=== PATIENT | male | born 1950 | race Caucasian/White ===

== ENCOUNTER 2016-11-20 11:22 | Inpatient (IN) | payer MEDICAID ==
[2016-11-20 12:38] LABS: BASO # 0.1 K/uL (0.0-0.2); BASO % 1.1 % (0.0-2.0); EOS # 0.2 K/uL (0.0-0.7); EOS % 3.8 % (0.0-4.0); HEMATOCRIT 37.3 % (35.0-51.0); LYMPH # 1.8 K/uL (1.0-4.3); LYMPH % 34.4 % (20.0-40.0); MEAN CELL VOLUME 92.9 fL (80.0-94.0); MEAN CORPUSCULAR HEMOGLOBIN 31.1 pg (27.0-31.0); MEAN CORPUSCULAR HGB CONC 33.5 g/dL (33.0-37.0); MEAN PLATELET VOLUME 7.2 fL (7.2-11.7); MONO # 0.5 K/uL (0.0-0.8); MONO % 9.1 % (0.0-10.0); RED CELL DISTRIBUTION WIDTH 13.2 % (11.5-14.5); WHITE BLOOD COUNT 5.2 K/uL (4.8-10.8)
[2016-11-20 12:46] LABS: CHLORIDE 95 mmol/L (98-107); POTASSIUM 3.6 mmol/L (3.6-5.2); SODIUM 134 mmol/L (132-148)
[2016-11-20 12:48] LABS: ALB/GLOB RATIO 1.1 (1.0-2.1); ALKALINE PHOSPHATASE 55 U/L (38-126); AST/SGOT 29 U/L (17-59); BILIRUBIN,TOTAL 0.4 mg/dL (0.2-1.3); BLOOD UREA NITROGEN 18 mg/dL (9-20); CARBON DIOXIDE 31 mmol/L (22-30); GFR AFRICAN-AMERICAN > 60; TOTAL PROTEIN 7.4 g/dL (6.3-8.3)
[2016-11-20 12:49] LABS: ALT/SGPT 40 U/L (21-72); CALCIUM 9.4 mg/dl (8.6-10.4); GLUCOSE,RANDOM 88 mg/dL (75-110)
--- NOTE | 2016-11-20 12:58 | CT ---
PROCEDURE: CT HEAD WITHOUT CONTRAST. HISTORY: LEG WEAKNESS COMPARISON: None available. TECHNIQUE: Axial computed tomography images were obtained through the head/brain without intravenous contrast. Radiation dose: Total exam DLP = 969.77 mGy-cm. This CT exam was performed using one or more of the following dose reduction techniques: Automated exposure control, adjustment of the mA and/or kV according to patient size, and/or use of iterative reconstruction technique. FINDINGS: HEMORRHAGE: No acute parenchymal, subarachnoid or extra-axial hemorrhage. BRAIN: No evidence of large acute infarct. Minor chronic periventricular white matter ischemic changes. Mild generalized volume loss. VENTRICLES: No obstructive hydrocephalus CALVARIUM: . There are no acute calvarial fractures. PARANASAL SINUSES: Mild mucosal thickening within the ethmoid air complex MASTOID AIR CELLS: Unremarkable as visualized. No inflammatory changes. OTHER FINDINGS: Phthisis bulbi left globe IMPRESSION: No acute intracranial hemorrhage. Minor chronic periventricular white matter ischemic changes. . Mild generalized volume loss Phthisis bulbi left globe
--- NOTE | 2016-11-20 14:01 | C.PDOC ---
History Of Present Illness 66-year-old male BIBA for evaluation of difficulty walking for the past three days. Patient states he typically ambulates with a cane, and for the last few days he feels like he has weakness in B/L legs. Patient also reports that he fell earlier today, and was on the floor for approx forty minutes before he was able to call 911. He denies dizziness, trouble walking in straight line, sensory changes, visual changes, speech changes,facial droop, headache, fever, neck or low back pain, chest pain, palpitations. Time Seen by Provider: 11/20/16 11:45 Chief Complaint (Nursing): Lower Extremity Problem/Injury History Per: Patient, EMS History/Exam Limitations: no limitations Onset/Duration Of Symptoms: Days Current Symptoms Are (Timing): Still Present Severity: Moderate Past Medical History Reviewed: Historical Data, Nursing Documentation, Vital Signs Vital Signs: Last Vital Signs Temp 97.7 F 11/26/16 09:01 Pulse 73 11/26/16 09:01 Resp 20 11/26/16 09:01 BP 141/95 H 11/26/16 09:01 Pulse Ox 98 11/26/16 09:08 - Medical History PMH: HTN Family History: States: No Known Family Hx - Social History Hx Alcohol Use: No Hx Substance Use: No - Immunization History Hx Tetanus Toxoid Vaccination: No Hx Influenza Vaccination: Yes Hx Pneumococcal Vaccination: Yes Review Of Systems Except As Marked, All Systems Reviewed And Found Negative. Constitutional: Positive for: Weakness (in legs). Negative for: Fever, Chills Cardiovascular: Negative for: Chest Pain, Palpitations Respiratory: Negative for: Cough, Shortness of Breath Gastrointestinal: Negative for: Nausea, Vomiting, Abdominal Pain, Diarrhea Musculoskeletal: Positive for: Leg Pain Neurological: Positive for: Weakness. Negative for: Numbness, Incoordination, Change in Speech, Confusion, Seizures, Altered Mental Status, Headache, Dizziness Physical Exam - Physical Exam Appears: Well, Non-toxic, No Acute Distress Skin: Warm, Dry, No Rash Head: Atraumatic, Normacephalic Eye(s): bilateral: Normal Inspection, PERRL, EOMI Oral Mucosa: Moist Neck: Normal, Normal ROM, No Midline Cervical Tenderness, No Paracervical Tenderness, No Step Off Deformity, Supple Cardiovascular: Rhythm Regular Respiratory: Normal Breath Sounds, No Rales, No Rhonchi, No Wheezing Gastrointestinal/Abdominal: Normal Exam, Bowel Sounds, Soft, No Tenderness Back: Normal Inspection, No CVA Tenderness, No Vertebral Tenderness Extremity: Normal ROM, No Tenderness, No Pedal Edema, No Calf Tenderness, Capillary Refill (<2 seconds all digits ), No Deformity Extremity: Bilateral: Atraumatic, Normal Color And Temperature, Normal ROM Pulses: Left Dorsalis Pedis: Normal, Right Dorsalis Pedis: Normal Neurological/Psych: Oriented x3, Normal Speech, Normal Cognition, Normal Cranial Nerves, No Cerebellar Signs, Normal Motor, Normal Sensation, Normal Reflexes, No Dysarthria, No Romberg Gait: Unsteady ED Course And Treatment - Laboratory Results Result Diagrams: 11/25/16 17:16 11/25/16 17:16 ECG: Interpreted By Me, Viewed By Me (NSR 70 bpm, normal axis, no acute ST/T wave changes.) O2 Sat by Pulse Oximetry: 98 (RA) Pulse Ox Interpretation: Normal - CT Scan/US CT HEAD Other Rad Studies (CT/US): Read By Radiologist, Radiology Report Reviewed CT/US Interpretation: Accession No. : [id number]. Patient Name / ID : ARIA GREWAL / [id number]. Exam Date : 11/20/2016 12:44:23 ( Approved ). Study Comment : Sex / Age : M / 66Y. Creator : Robby Adler MD. Dictator : Robby Adler MD. Powder Coater : Blend Plant Operator : Robby Adler MD. Approver2 : Report Date : 11/20/2016 12:56:46. My Comment : . PROCEDURE: CT HEAD WITHOUT CONTRAST. HISTORY: LEG WEAKNESS. COMPARISON: None available. TECHNIQUE: Axial computed tomography images were obtained through the head/brain without intravenous contrast. Radiation dose: Total exam DLP = 969.77 mGy-cm. This CT exam was performed using one or more of the following dose reduction techniques: Automated exposure control, adjustment of the mA and/or kV according to patient size, and/or use of iterative reconstruction technique. FINDINGS: HEMORRHAGE: No acute parenchymal, subarachnoid or extra-axial hemorrhage. BRAIN: No evidence of large acute infarct. Minor chronic periventricular white matter ischemic changes. Mild generalized volume loss. VENTRICLES: No obstructive hydrocephalus. CALVARIUM : . There are no acute calvarial fractures. PARANASAL SINUSES: Mild mucosal thickening within the ethmoid air complex. MASTOID AIR CELLS: Unremarkable as visualized. No inflammatory changes. OTHER FINDINGS: Phthisis bulbi left globe. IMPRESSION: No acute intracranial hemorrhage. Minor chronic periventricular white matter ischemic changes. . Mild generalized volume loss. Phthisis bulbi left globe Progress Note: Blood work, CT Head, EKG, UA ordered and reviewed. PT eval ordered - they evaluated patient and think he is too unsteady on his feet to be safely discharged, particularly since he has multiple stairs he needs to climb to get to his apartment. Reevaluation Time: 15:30 Reassessment Condition: Unchanged (Patient resting comfortably, in no pain. When ambulated, patient states both legs feel weak, and is unsteady on feet.) - Physician Consult Information Physician Contacted: Shonda Barlow Outcome Of Conversation: Discussed patient with Dr. Golden Barlow, agrees with admission for difficulty ambulating, recurrent falls, elevated CK. Disposition - Disposition Disposition: HOSPITALIZED Disposition Time: 15:37 Condition: STABLE - Clinical Impression Clinical Impression: Unsteady gait, Recurrent falls, Elevated CK - Scribe Statement The provider has reviewed the documentation as recorded by the Emilie Ron All medical record entries made by the Rosettaibcasey were at my direction and personally dictated by me. I have reviewed the chart and agree that the record accurately reflects my personal performance of the history, physical exam, medical decision making, and the department course for this patient. I have also personally directed, reviewed, and agree with the discharge instructions and disposition. Decision To Admit - Pt Status Changed To: Hospital Disposition Of: Inpatient - Admit Certification Admit to Inpatient:: After my assessment, the patient will require hospitalization for at least two midnights. This is because of the severity of symptoms shown, intensity of services needed, and/or the medical risk in this patient being treated as an outpatient. - InPatient: Physician Admission Certification: I certify that this patient requires 2 or more midnights of care for the following reason:: see notes - . Bed Request Type: Regular Admitting Physician: Shonda Barlow Patient Diagnosis: Unsteady gait, Recurrent falls, Elevated CK
[2016-11-20 14:21] LABS: RBC URINE < 1 /hpf (0-3); URINE BILIRUBIN NEGATIVE (NEGATIVE); URINE BLOOD NEGATIVE (NEGATIVE); URINE COLOR Yellow (YELLOW); URINE GLUCOSE (UA) NORMAL (Normal); URINE KETONE NEGATIVE (NEGATIVE); URINE LEUKOCYTE ESTERASE NEG Leu/uL (Negative); URINE PROTEIN NEGATIVE (NEGATIVE); URINE UROBILINOGEN NORMAL mg/dL (0.2-1.0)
--- NOTE | 2016-11-20 18:11 | CP.PCM.HP ---
Past Patient History - Infectious Disease Hx of Infectious Diseases: None - Past Social History Smoking Status: Never Smoked - CARDIAC Hx Hypertension: Yes - ENDOCRINE/METABOLIC Hx Diabetes Mellitus Type 1: Yes - PSYCHIATRIC Hx Substance Use: No - ANESTHESIA Hx Anesthesia: No Meds Allergies/Adverse Reactions: Allergies Allergy/AdvReac Type Severity Reaction Status Date / Time olive oil Allergy Verified 11/20/16 11:33 Physical Exam - Constitutional Appears: Well - Head Exam Head Exam: ATRAUMATIC, NORMAL INSPECTION, NORMOCEPHALIC - Eye Exam Eye Exam: EOMI, Normal appearance, PERRL Pupil Exam: NORMAL ACCOMODATION, PERRL - ENT Exam ENT Exam: Mucous Membranes Moist, Normal Exam - Neck Exam Neck exam: Positive for: Normal Inspection - Respiratory Exam Respiratory Exam: Decreased Breath Sounds - Cardiovascular Exam Cardiovascular Exam: REGULAR RHYTHM, +S1, +S2 - GI/Abdominal Exam GI & Abdominal Exam: Diminished Bowel Sounds, Soft - Rectal Exam Rectal Exam: Deferred Results - Vital Signs Recent Vital Signs: Last Vital Signs Temp 97.5 F L 11/20/16 17:17 Pulse 84 11/20/16 17:17 Resp 16 11/20/16 17:17 BP 122/90 11/20/16 17:17 Pulse Ox 98 11/20/16 17:17 - Labs Result Diagrams: 11/20/16 12:34 11/20/16 12:34
[2016-11-20] MEDS: Ergocalciferol 50,000 Intl Units Cap PO SCH ×2 (21:44→21:45)
[2016-11-20 23:19] VITALS: RESP 20
[2016-11-21 06:34] LABS: CHLORIDE 97 mmol/L (98-107); POTASSIUM 3.7 mmol/L (3.6-5.2); SODIUM 135 mmol/L (132-148)
[2016-11-21 06:36] LABS: AST/SGOT 29 U/L (17-59); BILIRUBIN,TOTAL 0.6 mg/dL (0.2-1.3); CARBON DIOXIDE 29 mmol/L (22-30); GFR AFRICAN-AMERICAN > 60
[2016-11-21 06:37] LABS: ALB/GLOB RATIO 1.2 (1.0-2.1); ALKALINE PHOSPHATASE 53 U/L (38-126); ALT/SGPT 34 U/L (21-72); BLOOD UREA NITROGEN 18 mg/dL (9-20); CALCIUM 9.1 mg/dl (8.6-10.4); GLUCOSE,RANDOM 86 mg/dL (75-110); TOTAL PROTEIN 6.9 g/dL (6.3-8.3)
[2016-11-21 07:06] LABS: THYROID STIMULATING HORMONE 2.08 mIU/L (0.46-4.68)
[2016-11-21 07:12] LABS: BASO % 0.7 % (0.0-2.0); EOS # 0.2 K/uL (0.0-0.7); EOS % 3.6 % (0.0-4.0); HEMATOCRIT 36.7 % (35.0-51.0); LYMPH # 1.8 K/uL (1.0-4.3); LYMPH % 41.7 % (20.0-40.0); MEAN CELL VOLUME 91.8 fL (80.0-94.0); MEAN CORPUSCULAR HGB CONC 33.8 g/dL (33.0-37.0); MEAN PLATELET VOLUME 7.4 fL (7.2-11.7); MONO # 0.4 K/uL (0.0-0.8); MONO % 10.5 % (0.0-10.0); NRBC % 0.2 % (0.0-2.0); RED CELL DISTRIBUTION WIDTH 13.4 % (11.5-14.5); WHITE BLOOD COUNT 4.3 K/uL (4.8-10.8)
[2016-11-21] MEDS: Enoxaparin 40 mg Syringe SC SCH (11:19)
[2016-11-21] MEDS: Pantoprazole 40 mg EC Tab PO SCH (11:20)
[2016-11-21] MEDS: Tolterodine 2 mg ER Cap PO SCH (11:21)
[2016-11-21] MEDS: Multiple Vitamins Tab PO SCH (11:21)
[2016-11-21 13:08] LABS: THYROID STIMULATING HORMONE 1.19 mIU/L (0.46-4.68)
--- NOTE | 2016-11-21 13:53 | CON ---
DATE: 11/21/2016 ATTENDING PHYSICIAN: Chris Barlow MD. The patient's room #559, bed 1. REASON FOR CONSULTATION: Frequent falls. CHIEF COMPLAINT: The patient was brought in to [facility] with a history of difficulty in walking for the last 3 days. From the fall, he could not able to get up himself, and he was calling to get help. From neurological point of view, I was called in to evaluate him for further management. HISTORY OF PRESENT ILLNESS: The patient is a 66-year-old, moderately obese, male presenting with a fall and inability to get up by himself. He needs assistance to get him up. He was lying on the ground for 30-40 minutes. He also admits one day he slept more than15 hours as a stretch. He could not recall what happened during the whole process. He is also complaining of excessive sleepiness, which could not get up himself to up. No clear history of sleep paralysis, hypnagogic hallucination. He denies headache. He denies neck pain. He denies lower back pain. PAST MEDICAL HISTORY: Significant for bipolar disorder, been on psychiatric medication. High blood pressure. PERSONAL HISTORY: Alcohol: He has not drank since 2005. He never smoked. MEDICATIONS: celecoxib, Coreg, benztropine, metformin, Zyprexa, Niaspan, fluoxetine, Diovan, Detrol, Risperdal, vitamin D3. REVIEW OF SYSTEMS: As per H and P. PHYSICAL EXAMINATION: VITAL SIGNS: Blood pressure 133/87, mean arterial pressure of 102. Respiratory rate is 16, temperature 97.6, pulse rate 78. NEUROLOGIC: The patient is awake, alert, oriented to person, place, and time. Speech is clear. Naming, repetition, fluency, comprehension all within normal. PSYCHIATRIC: No sign of depression. No sign of hallucination. No sign of suicidal ideation. NECK: Supple. No carotid bruit. HEART: Sounds regular. CHEST: Fair air entry. EXTREMITIES: 1+ pitting edema on both sides. MOTOR: On outstretched hand with eyes closed, no drift noted. Power is symmetric on either side. DEEP TENDON REFLEXES: Absent. Plantars are downgoing. COORDINATION: [id number] test is intact. SENSORY EXAMINATION: No evidence of extrapyramidal signs noted. CONCLUSION: 1. Upon reviewing his history and neurological examination, the patient is presenting with possible sleep-related breathing disorder, may be complicated with narcolepsy with cataplexy. 2. 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 3. Polypharmacy. Other possible causes - nonconvulsive seizures, intracranial lesions. This should be ruled out. LABORATORY DATA: Workup: WBC of 5.2, hemoglobin 12.5, hematocrit 37.3, platelets 253. Sodium 134, potassium 3.6, chloride 95, bicarbonate 31. CPK 231. Urinalysis is negative. RECOMMENDATIONS: 1. The patient should have MRI of the brain to rule out intracranial lesion. 2. EEG to rule out electrographic seizures. 3. The patient should have sleep studies, which can be done as an outpatient including a sleep latency test to rule out narcolepsy with cataplexy. The patient should be followed by psychiatrist, and tailor off unwanted medication. Weight reduction and diabetic control has been discussed with the patient. Erlin Armstrong MD cc: [id number] TT: 11/21/2016 11:27:00 Confirmation # [id number] Dictation # [id number] [id number]
--- NOTE | 2016-11-21 14:02 | CP.PCM.PN ---
Subjective - Date & Time of Evaluation Date of Evaluation: 11/21/16 Time of Evaluation: 10:20 - Subjective Subjective: clinically same Objective - Vital Signs/Intake and Output Vital Signs (last 24 hours): Temp Pulse Resp BP Pulse Ox 97.5 F L 80 20 124/89 98 11/21/16 08:53 11/21/16 08:53 11/21/16 08:53 11/21/16 11:20 11/21/16 08:53 Intake and Output: 11/21/16 11/21/16 06:59 18:59 Intake Total 240 Balance 240 - Medications Medications: Current Medications Aspirin (Aspirin) 325 mg PO DAILY [facility] Last Admin: 11/21/16 11:20 Dose: 325 mg Benztropine Mesylate (Cogentin) 2 mg PO DAILY [facility] Last Admin: 11/21/16 11:21 Dose: 2 mg Carvedilol (Coreg) 25 mg PO BID [facility] Last Admin: 11/21/16 11:20 Dose: 25 mg Celecoxib (Celebrex) 200 mg PO DAILY [facility] Last Admin: 11/21/16 11:21 Dose: 200 mg Enoxaparin Sodium (Lovenox) 40 mg SC DAILY [facility] Last Admin: 11/21/16 11:19 Dose: 40 mg Ergocalciferol (Drisdol 50,000 Intl Units Cap) 1 cap PO Q7D [facility] Last Admin: 11/20/16 21:45 Dose: Not Given Fluoxetine HCl (Prozac) 20 mg PO DAILY [facility] Last Admin: 11/21/16 11:27 Dose: 20 mg Metformin HCl (Glucophage) 500 mg PO BID [facility] Last Admin: 11/21/16 11:21 Dose: 500 mg Multivitamins (Hexavitamin) 1 tab PO DAILY [facility] Last Admin: 11/21/16 11:21 Dose: 1 tab Olanzapine (Zyprexa) 5 mg PO HS [facility] Last Admin: 11/20/16 22:27 Dose: 5 mg Pantoprazole Sodium (Protonix Ec Tab) 40 mg PO DAILY [facility] Last Admin: 11/21/16 11:20 Dose: 40 mg Pneumococcal Polyvalent Vaccine (Pneumovax 23 Vaccine) 0.5 ml IM .ONCE ONE Stop: 11/24/16 10:01 Risperidone (Risperdal Tab) 2 mg PO BID [facility] Last Admin: 11/21/16 11:20 Dose: 2 mg Tolterodine Tartrate (Detrol La) 2 mg PO DAILY [facility] Last Admin: 11/21/16 11:21 Dose: 2 mg - Labs Labs: 11/21/16 06:12 11/21/16 06:12 - Constitutional Appears: Well - Head Exam Head Exam: ATRAUMATIC, NORMAL INSPECTION, NORMOCEPHALIC - Eye Exam Eye Exam: EOMI, Normal appearance, PERRL Pupil Exam: NORMAL ACCOMODATION, PERRL - ENT Exam ENT Exam: Mucous Membranes Moist, Normal Exam - Neck Exam Neck Exam: Full ROM, Normal Inspection. absent: Lymphadenopathy - Respiratory Exam Respiratory Exam: Decreased Breath Sounds - Cardiovascular Exam Cardiovascular Exam: REGULAR RHYTHM, +S1, +S2 - GI/Abdominal Exam GI & Abdominal Exam: Soft, Diminished Bowel Sounds - Rectal Exam Rectal Exam: Deferred Assessment and Plan - Assessment and Plan (Free Text) Plan: neuro art dopple rpt ot juan as ordered vit b12 tsh normal vit d ordered
--- NOTE | 2016-11-21 16:13 | VASCLAB ---
PROCEDURE: HISTORY: stenosis COMPARISON: None available. TECHNIQUE: Grayscale and duplex Doppler evaluation of the cervical carotid and vertebral arteries were performed. The common carotid, carotid bifurcations and cervical Internal Carotid Artery (ICA) and proximal External Carotid Artery (ECA) were evaluated. The vertebral arteries were evaluated for gross patency and flow direction. Report prepared by Romulo Moser, BS, RVT FINDINGS: RIGHT CAROTID ARTERIES: 1. Common Carotid Artery: No significant focal plaque formation of the right common carotid artery. Maximum Peak Systolic velocity: 49 cm/sec: End-diastolic velocity 13 cm/sec. 2. Carotid Bifurcation: plaque formation. Maximum Peak Systolic velocity: 24 cm/sec: End-diastolic velocity 10 cm/sec. 3. Internal Carotid Artery: Plaque description: 3.1. Proximal Segment: Peak systolic velocity 82 cm/sec: End-diastolic velocity 24 cm/sec - % stenosis 0-15% 3.2. Middle Segment: Peak systolic velocity 87 cm/sec: End-diastolic velocity 27 cm/sec - % stenosis 0-15% 3.3. Distal Segment: Peak systolic velocity 75 cm/sec: End-diastolic velocity 28 cm/sec - % stenosis 0-15% 4. External Carotid Artery: No significant focal plaque formation. Peak systolic velocity 62 cm/sec 5. ICA/CCA Ratio: 1.8 LEFT CAROTID ARTERIES: 1. Common Carotid Artery: No significant focal plaque formation of the left common carotid artery. Maximum Peak Systolic velocity: 51 cm/sec: End-diastolic velocity 12 cm/sec. 2. Carotid Bifurcation: plaque formation. Maximum Peak Systolic velocity: 40 cm/sec: End-diastolic velocity 11 cm/sec. 3. Internal Carotid Artery: Plaque description: 3.1. Proximal Segment: Peak systolic velocity 84 cm/sec: End-diastolic velocity 28 cm/sec - % stenosis 0-15% 3.2. Middle Segment: Peak systolic velocity 59 cm/sec: End-diastolic velocity 24 cm/sec - % stenosis 0-15% 3.3. Distal Segment: Peak systolic velocity 52 cm/sec: End-diastolic velocity 17 cm/sec - % stenosis 0-15% 4. External Carotid Artery: No significant focal plaque formation. Peak systolic velocity 40 cm/sec 5. ICA/CCA Ratio: 1.6 VERTEBRAL ARTERIES: 1. Right Vertebral Artery: The right vertebral artery flow direction is antegrade. 2. Left Vertebral Artery: The left vertebral artery flow direction is antegrade. OTHER FINDINGS: 1. Right Brachial Blood pressure: 160 mmHg. 2. Left Brachial Blood pressure: 160 mmHg. IMPRESSION: RIGHT: Duplex scan does not suggest hemodynamically significant stenosis of the right extracranial carotid arteries. LEFT: Duplex scan does not suggest hemodynamically significant stenosis of the left extracranial carotid arteries.
--- NOTE | 2016-11-21 18:34 | CARD ---
APPROVED REPORT EKG Measurement Heart [id number] <Conclusion> Normal sinus rhythm Normal ECG
--- NOTE | 2016-11-22 08:15 | MRI ---
PROCEDURE: MRI BRAIN WITHOUT CONTRAST HISTORY: stroke /mass COMPARISON: None. TECHNIQUE: Multiplanar, multisequence MR images of the brain were obtained without intravenous contrast enhancement. FINDINGS: HEMORRHAGE: None DWI: No evidence of an acute or early subacute infarction. BRAIN PARENCHYMA: No mass effect or edema. Scattered periventricular white matter signal abnormalities with mild prominence of the ventricles and sulci compatible with atrophy. VENTRICLES: Unremarkable. No hydrocephalus. CRANIUM: Unremarkable. ORBITS: Grossly unremarkable. PARANASAL SINUSES/MASTOIDS: Clear VASCULAR SYSTEM: Skull base flow voids intact. OTHER FINDINGS: None. IMPRESSION: Scattered periventricular white matter signal abnormalities with mild prominence of the ventricles and sulci compatible with atrophy.
--- NOTE | 2016-11-22 10:26 | CP.PCM.PN ---
Subjective - Date & Time of Evaluation Date of Evaluation: 11/22/16 Time of Evaluation: 12:40 - Subjective Subjective: clinically same Objective - Vital Signs/Intake and Output Vital Signs (last 24 hours): Temp Pulse Resp BP Pulse Ox 97.4 F L 64 20 132/84 97 11/22/16 07:10 11/22/16 07:10 11/22/16 07:10 11/22/16 07:10 11/22/16 07:10 Intake and Output: 11/22/16 11/22/16 06:59 18:59 Intake Total 720 Balance 720 - Medications Medications: Current Medications Aspirin (Aspirin) 325 mg PO DAILY [facility] Last Admin: 11/21/16 11:20 Dose: 325 mg Benztropine Mesylate (Cogentin) 2 mg PO DAILY [facility] Last Admin: 11/21/16 11:21 Dose: 2 mg Carvedilol (Coreg) 25 mg PO BID [facility] Last Admin: 11/21/16 18:13 Dose: 25 mg Celecoxib (Celebrex) 200 mg PO DAILY [facility] Last Admin: 11/21/16 11:21 Dose: 200 mg Enoxaparin Sodium (Lovenox) 40 mg SC DAILY [facility] Last Admin: 11/21/16 11:19 Dose: 40 mg Ergocalciferol (Drisdol 50,000 Intl Units Cap) 1 cap PO Q7D [facility] Last Admin: 11/20/16 21:45 Dose: Not Given Fluoxetine HCl (Prozac) 20 mg PO DAILY [facility] Last Admin: 11/21/16 11:27 Dose: 20 mg Metformin HCl (Glucophage) 500 mg PO BID [facility] Last Admin: 11/21/16 18:13 Dose: 500 mg Multivitamins (Hexavitamin) 1 tab PO DAILY [facility] Last Admin: 11/21/16 11:21 Dose: 1 tab Olanzapine (Zyprexa) 5 mg PO HS [facility] Last Admin: 11/21/16 21:50 Dose: 5 mg Pantoprazole Sodium (Protonix Ec Tab) 40 mg PO DAILY [facility] Last Admin: 11/21/16 11:20 Dose: 40 mg Pneumococcal Polyvalent Vaccine (Pneumovax 23 Vaccine) 0.5 ml IM .ONCE ONE Stop: 11/24/16 10:01 Risperidone (Risperdal Tab) 2 mg PO BID [facility] Last Admin: 11/21/16 18:13 Dose: 2 mg Tolterodine Tartrate (Detrol La) 2 mg PO DAILY [facility] Last Admin: 11/21/16 11:21 Dose: 2 mg - Labs Labs: 11/21/16 06:12 11/21/16 06:12 - Constitutional Appears: Well - Head Exam Head Exam: ATRAUMATIC, NORMAL INSPECTION, NORMOCEPHALIC - Eye Exam Eye Exam: EOMI, Normal appearance, PERRL Pupil Exam: NORMAL ACCOMODATION, PERRL - ENT Exam ENT Exam: Mucous Membranes Moist, Normal Exam - Neck Exam Neck Exam: Full ROM, Normal Inspection. absent: Lymphadenopathy - Respiratory Exam Respiratory Exam: Decreased Breath Sounds - Cardiovascular Exam Cardiovascular Exam: REGULAR RHYTHM, +S1, +S2 - GI/Abdominal Exam GI & Abdominal Exam: Soft, Diminished Bowel Sounds - Rectal Exam Rectal Exam: Deferred
[2016-11-22] MEDS: Tolterodine 2 mg ER Cap PO SCH (10:34)
[2016-11-22] MEDS: Multiple Vitamins Tab PO SCH (10:34)
[2016-11-22] MEDS: Pantoprazole 40 mg EC Tab PO SCH (10:34)
[2016-11-22] MEDS: Enoxaparin 40 mg Syringe SC SCH (10:35)
--- NOTE | 2016-11-22 14:47 | VASCLAB ---
STUDY DESCRIPTION: HISTORY: PAD PRIORS: None. TECHNIQUE: Pulse volume recording waveforms and segmental pressures of bilateral lower extremities at multiple levels were obtained. Ankle Brachial Indices (ABIs) were calculated. Report prepared by TANYA Devi, RVT RIGHT LOWER EXTREMITY: * Brachial artery: Pressure - 126 mmHg. * High thigh: Pressure - 201 mmHg: Ratio - 1.51: PVR waveform - Pulsatile * Low thigh: Pressure - 181 mmHg: Ratio - 1.36 PVR waveform: Pulsatile * Calf: Pressure - 162 mmHg: Ratio - 1.22 PVR waveform: Pulsatile * Posterior tibial Artery: Pressure - 165 mmHg: Ratio - 1.24 PVR waveform: Pulsatile * Dorsalis pedis Artery: Pressure - 165 mmHg: Ratio - 1.24 PVR waveform: Pulsatile * Great toe: Pressure - mmHg: Ratio - PVR waveform: Ankle brachial index (KEYONA): 1.24 LEFT LOWER EXTREMITY: * Brachial artery: Pressure - 133 mmHg. * High thigh: Pressure - 220 mmHg: Ratio - NC: PVR waveform - Pulsatile * Low thigh: Pressure - 202 mmHg: Ratio - 1.52 PVR waveform: Pulsatile * Calf: Pressure - 189 mmHg: Ratio - 1.42 PVR waveform: Pulsatile * Posterior tibial Artery: Pressure - 179 mmHg: Ratio - 1.35 PVR waveform: Pulsatile * Dorsalis pedis Artery: Pressure - 174 mmHg: Ratio - 1.31 PVR waveform: Pulsatile * Great toe: Pressure - mmHg: Ratio - PVR waveform: Ankle brachial index (KEYONA): 1.35 OTHER FINDINGS: Right: Left: IMPRESSION: Right: There was no evidence of hemodynamically significant arterial insufficiency in the right lower extremity. Left: The ankle pressure index of the left lower extremity is non-diagnostic due to possible arterial wall calcifications.
[2016-11-23 21:56] LABS: BLOOD UREA NITROGEN 14 mg/dL (9-20); CALCIUM 8.6 mg/dl (8.6-10.4); CARBON DIOXIDE 26 mmol/L (22-30); CHLORIDE 101 mmol/L (98-107); GFR AFRICAN-AMERICAN > 60; GLUCOSE,RANDOM 91 mg/dL (75-110); POTASSIUM 3.9 mmol/L (3.6-5.2); SODIUM 136 mmol/L (132-148)
[2016-11-23 22:03] LABS: BASO % 0.6 % (0.0-2.0); EOS # 0.2 K/uL (0.0-0.7); EOS % 4.3 % (0.0-4.0); LYMPH # 1.4 K/uL (1.0-4.3); LYMPH % 32.6 % (20.0-40.0); MEAN CELL VOLUME 93.4 fL (80.0-94.0); MEAN CORPUSCULAR HGB CONC 33.2 g/dL (33.0-37.0); MEAN PLATELET VOLUME 7.7 fL (7.2-11.7); MONO # 0.4 K/uL (0.0-0.8); MONO % 9.4 % (0.0-10.0); NRBC % 0.1 % (0.0-2.0); RED CELL DISTRIBUTION WIDTH 13.1 % (11.5-14.5); WHITE BLOOD COUNT 4.3 K/uL (4.8-10.8)
--- NOTE | 2016-11-23 22:32 | CP.PCM.PN ---
Objective - Vital Signs/Intake and Output Vital Signs (last 24 hours): Temp Pulse Resp BP Pulse Ox 98.0 F 75 20 154/72 H 98 11/22/16 15:13 11/22/16 15:13 11/22/16 15:13 11/22/16 19:15 11/22/16 15:13 - Medications Medications: Current Medications Aspirin (Aspirin) 325 mg PO DAILY [facility] Last Admin: 11/22/16 10:34 Dose: 325 mg Benztropine Mesylate (Cogentin) 2 mg PO DAILY [facility] Last Admin: 11/22/16 10:35 Dose: 2 mg Carvedilol (Coreg) 25 mg PO BID [facility] Last Admin: 11/22/16 19:15 Dose: 25 mg Celecoxib (Celebrex) 200 mg PO DAILY [facility] Last Admin: 11/22/16 10:34 Dose: 200 mg Enoxaparin Sodium (Lovenox) 40 mg SC DAILY [facility] Last Admin: 11/22/16 10:35 Dose: 40 mg Ergocalciferol (Drisdol 50,000 Intl Units Cap) 1 cap PO Q7D [facility] Last Admin: 11/20/16 21:45 Dose: Not Given Fluoxetine HCl (Prozac) 20 mg PO DAILY [facility] Last Admin: 11/22/16 10:35 Dose: 20 mg Metformin HCl (Glucophage) 500 mg PO BID [facility] Last Admin: 11/22/16 17:55 Dose: 500 mg Multivitamins (Hexavitamin) 1 tab PO DAILY [facility] Last Admin: 11/22/16 10:34 Dose: 1 tab Olanzapine (Zyprexa) 5 mg PO HS [facility] Last Admin: 11/22/16 22:13 Dose: 5 mg Pantoprazole Sodium (Protonix Ec Tab) 40 mg PO DAILY [facility] Last Admin: 11/22/16 10:34 Dose: 40 mg Pneumococcal Polyvalent Vaccine (Pneumovax 23 Vaccine) 0.5 ml IM .ONCE ONE Stop: 11/24/16 10:01 Risperidone (Risperdal Tab) 2 mg PO BID [facility] Last Admin: 11/22/16 17:55 Dose: 2 mg Tolterodine Tartrate (Detrol La) 2 mg PO DAILY [facility] Last Admin: 11/22/16 10:34 Dose: 2 mg - Labs Labs: 11/23/16 04:00 11/23/16 04:00
[2016-11-24] MEDS ORDERED: Pneumococcal 23-Valent Vaccine IM ONE (10:00)
[2016-11-24] MEDS: Multiple Vitamins Tab PO SCH (10:22)
[2016-11-24] MEDS: Enoxaparin 40 mg Syringe SC SCH (10:23)
[2016-11-24] MEDS: Pantoprazole 40 mg EC Tab PO SCH (10:24)
[2016-11-24] MEDS: Tolterodine 2 mg ER Cap PO SCH (10:38)
--- NOTE | 2016-11-24 11:22 | EEG ---
DATE: 11/21/2016 FINDINGS: The resting electroencephalogram consists of low amplitude 20-30 microvolt diffuse high th eta activity seen at parietal and occipital leads. Anteriorly fast activity superimposed with 2 to 3 Hz delta activity seen. Intermittent movement artifact contaminated by the background rhythm. The photic stimulation did not evoke driving response noted at 2 to 20 Hz. IMPRESSION: This is abnormal electroencephalogram because of persistent slowing throughout the recor d suggestive of bilateral cerebral dysfunction. This is probably secondary to metabolic vascular or degenerative process. Please correlate the findings with neurological and radiological studies. Erlin Armstrong MD cc: [id number] TT: 11/22/2016 21:28:02 Confirmation # [id number] Dictation # [id number]
--- NOTE | 2016-11-24 17:59 | CP.PCM.PN ---
Subjective - Date & Time of Evaluation Date of Evaluation: 11/24/16 Time of Evaluation: 11:20 - Subjective Subjective: clinically same Objective - Vital Signs/Intake and Output Vital Signs (last 24 hours): Temp Pulse Resp BP Pulse Ox 97.8 F 74 20 143/87 96 11/24/16 17:46 11/24/16 17:46 11/24/16 17:46 11/24/16 17:46 11/24/16 17:46 Intake and Output: 11/24/16 11/24/16 06:59 18:59 Intake Total 480 Balance 480 - Medications Medications: Current Medications Aspirin (Aspirin) 325 mg PO DAILY [facility] Last Admin: 11/24/16 10:22 Dose: 325 mg Benztropine Mesylate (Cogentin) 2 mg PO DAILY [facility] Last Admin: 11/24/16 10:22 Dose: 2 mg Carvedilol (Coreg) 25 mg PO BID [facility] Last Admin: 11/24/16 10:38 Dose: 25 mg Celecoxib (Celebrex) 200 mg PO DAILY [facility] Last Admin: 11/24/16 10:24 Dose: 200 mg Enoxaparin Sodium (Lovenox) 40 mg SC DAILY [facility] Last Admin: 11/24/16 10:23 Dose: 40 mg Ergocalciferol (Drisdol 50,000 Intl Units Cap) 1 cap PO Q7D [facility] Last Admin: 11/20/16 21:45 Dose: Not Given Fluoxetine HCl (Prozac) 20 mg PO DAILY [facility] Last Admin: 11/24/16 10:23 Dose: 20 mg Metformin HCl (Glucophage) 500 mg PO BID [facility] Last Admin: 11/24/16 10:22 Dose: 500 mg Multivitamins (Hexavitamin) 1 tab PO DAILY [facility] Last Admin: 11/24/16 10:22 Dose: 1 tab Olanzapine (Zyprexa) 5 mg PO HS [facility] Last Admin: 11/23/16 23:41 Dose: 5 mg Pantoprazole Sodium (Protonix Ec Tab) 40 mg PO DAILY [facility] Last Admin: 11/24/16 10:24 Dose: 40 mg Risperidone (Risperdal Tab) 2 mg PO BID [facility] Last Admin: 11/24/16 10:23 Dose: 2 mg Tolterodine Tartrate (Detrol La) 2 mg PO DAILY [facility] Last Admin: 11/24/16 10:38 Dose: 2 mg - Labs Labs: 11/23/16 04:00 11/23/16 04:00 - Constitutional Appears: Well - Head Exam Head Exam: ATRAUMATIC, NORMAL INSPECTION, NORMOCEPHALIC - Eye Exam Eye Exam: EOMI, Normal appearance, PERRL Pupil Exam: NORMAL ACCOMODATION, PERRL - ENT Exam ENT Exam: Mucous Membranes Moist, Normal Exam - Neck Exam Neck Exam: Full ROM, Normal Inspection. absent: Lymphadenopathy - Respiratory Exam Respiratory Exam: Decreased Breath Sounds - Cardiovascular Exam Cardiovascular Exam: REGULAR RHYTHM, +S1, +S2 - GI/Abdominal Exam GI & Abdominal Exam: Soft, Diminished Bowel Sounds - Rectal Exam Rectal Exam: Deferred
[2016-11-25] MEDS: Multiple Vitamins Tab PO SCH (12:06)
[2016-11-25] MEDS: Pantoprazole 40 mg EC Tab PO SCH (12:06)
[2016-11-25] MEDS: Enoxaparin 40 mg Syringe SC SCH (12:08)
[2016-11-25] MEDS: Tolterodine 2 mg ER Cap PO SCH (12:09)
--- NOTE | 2016-11-25 12:53 | CP.PCM.PN ---
Subjective - Date & Time of Evaluation Date of Evaluation: 11/25/16 Time of Evaluation: 08:40 - Subjective Subjective: clinically same Objective - Vital Signs/Intake and Output Vital Signs (last 24 hours): Temp Pulse Resp BP Pulse Ox 97.7 F 84 20 130/92 H 97 11/24/16 23:05 11/24/16 23:05 11/24/16 23:05 11/25/16 12:07 11/24/16 23:05 - Medications Medications: Current Medications Aspirin (Aspirin) 325 mg PO DAILY [facility] Last Admin: 11/25/16 12:06 Dose: 325 mg Benztropine Mesylate (Cogentin) 2 mg PO DAILY [facility] Last Admin: 11/25/16 12:07 Dose: 2 mg Carvedilol (Coreg) 25 mg PO BID [facility] Last Admin: 11/25/16 12:07 Dose: 25 mg Celecoxib (Celebrex) 200 mg PO DAILY [facility] Last Admin: 11/25/16 12:06 Dose: 200 mg Enoxaparin Sodium (Lovenox) 40 mg SC DAILY [facility] Last Admin: 11/25/16 12:08 Dose: 40 mg Ergocalciferol (Drisdol 50,000 Intl Units Cap) 1 cap PO Q7D [facility] Last Admin: 11/20/16 21:45 Dose: Not Given Fluoxetine HCl (Prozac) 20 mg PO DAILY [facility] Last Admin: 11/25/16 12:08 Dose: 20 mg Metformin HCl (Glucophage) 500 mg PO BID [facility] Last Admin: 11/25/16 12:06 Dose: 500 mg Multivitamins (Hexavitamin) 1 tab PO DAILY [facility] Last Admin: 11/25/16 12:06 Dose: 1 tab Olanzapine (Zyprexa) 5 mg PO HS [facility] Last Admin: 11/24/16 22:35 Dose: 5 mg Pantoprazole Sodium (Protonix Ec Tab) 40 mg PO DAILY [facility] Last Admin: 11/25/16 12:06 Dose: 40 mg Risperidone (Risperdal Tab) 2 mg PO BID [facility] Last Admin: 11/25/16 12:06 Dose: 2 mg Tolterodine Tartrate (Detrol La) 2 mg PO DAILY [facility] Last Admin: 11/25/16 12:09 Dose: 2 mg - Labs Labs: 11/23/16 04:00 11/23/16 04:00 - Constitutional Appears: Well - Head Exam Head Exam: ATRAUMATIC, NORMAL INSPECTION, NORMOCEPHALIC - Eye Exam Eye Exam: EOMI, Normal appearance, PERRL Pupil Exam: NORMAL ACCOMODATION, PERRL - ENT Exam ENT Exam: Mucous Membranes Moist, Normal Exam - Neck Exam Neck Exam: Full ROM, Normal Inspection. absent: Lymphadenopathy - Respiratory Exam Respiratory Exam: Decreased Breath Sounds - Cardiovascular Exam Cardiovascular Exam: REGULAR RHYTHM, +S1, +S2 - GI/Abdominal Exam GI & Abdominal Exam: Soft, Diminished Bowel Sounds - Rectal Exam Rectal Exam: Deferred
--- NOTE | 2016-11-25 15:00 | CP.PCM.PN ---
Subjective - Date & Time of Evaluation Date of Evaluation: 11/25/16 Time of Evaluation: 14:52 - Subjective Subjective: 66 Y/O MALE WITH PMHX BIPOLAR, PT ADMITTED HERE FOR DIFFICULTY WALKING, FREQUENT FALLS, PT IS AWAKE,.AERT, SPEECH CLEAR, NO NEURO DEFICIT, CT BRAIN- NEGATIVE, MRI- NEGATIVE, EEG, CAROTID DOPPLER- NEGATIVE, LOWER EXT US- NO ARTERIAL INSUFFICIENCY, PT CLEARED FOR D/C TODAY PER DR Debra ALANIS AND DR GUEVARA TO [facility]. Objective - Vital Signs/Intake and Output Vital Signs (last 24 hours): Temp Pulse Resp BP Pulse Ox 97.7 F 77 20 130/92 H 99 11/25/16 08:00 11/25/16 08:00 11/25/16 08:00 11/25/16 12:07 11/25/16 08:00 - Medications Medications: Current Medications Aspirin (Aspirin) 325 mg PO DAILY [facility] Last Admin: 11/25/16 12:06 Dose: 325 mg Benztropine Mesylate (Cogentin) 2 mg PO DAILY [facility] Last Admin: 11/25/16 12:07 Dose: 2 mg Carvedilol (Coreg) 25 mg PO BID [facility] Last Admin: 11/25/16 12:07 Dose: 25 mg Celecoxib (Celebrex) 200 mg PO DAILY [facility] Last Admin: 11/25/16 12:06 Dose: 200 mg Enoxaparin Sodium (Lovenox) 40 mg SC DAILY [facility] Last Admin: 11/25/16 12:08 Dose: 40 mg Ergocalciferol (Drisdol 50,000 Intl Units Cap) 1 cap PO Q7D [facility] Last Admin: 11/20/16 21:45 Dose: Not Given Fluoxetine HCl (Prozac) 20 mg PO DAILY [facility] Last Admin: 11/25/16 12:08 Dose: 20 mg Metformin HCl (Glucophage) 500 mg PO BID [facility] Last Admin: 11/25/16 12:06 Dose: 500 mg Multivitamins (Hexavitamin) 1 tab PO DAILY [facility] Last Admin: 11/25/16 12:06 Dose: 1 tab Olanzapine (Zyprexa) 5 mg PO HS [facility] Last Admin: 11/24/16 22:35 Dose: 5 mg Pantoprazole Sodium (Protonix Ec Tab) 40 mg PO DAILY [facility] Last Admin: 11/25/16 12:06 Dose: 40 mg Risperidone (Risperdal Tab) 2 mg PO BID [facility] Last Admin: 11/25/16 12:06 Dose: 2 mg Tolterodine Tartrate (Detrol La) 2 mg PO DAILY [facility] Last Admin: 11/25/16 12:09 Dose: 2 mg - Labs Labs: 11/23/16 04:00 11/23/16 04:00
[2016-11-25 17:34] LABS: BASO % 0.7 % (0.0-2.0); EOS # 0.2 K/uL (0.0-0.7); EOS % 4.9 % (0.0-4.0); HEMATOCRIT 35.9 % (35.0-51.0); LYMPH # 1.9 K/uL (1.0-4.3); LYMPH % 37.5 % (20.0-40.0); MEAN CELL VOLUME 92.6 fL (80.0-94.0); MEAN CORPUSCULAR HEMOGLOBIN 30.4 pg (27.0-31.0); MEAN CORPUSCULAR HGB CONC 32.9 g/dL (33.0-37.0); MONO # 0.5 K/uL (0.0-0.8); MONO % 10.6 % (0.0-10.0); RED CELL DISTRIBUTION WIDTH 13.6 % (11.5-14.5)
[2016-11-25 17:47] LABS: CHLORIDE 103 mmol/L (98-107)
[2016-11-25 17:48] LABS: POTASSIUM 4.2 mmol/L (3.6-5.2); SODIUM 139 mmol/L (132-148)
[2016-11-25 17:50] LABS: BILIRUBIN,TOTAL 0.5 mg/dL (0.2-1.3); CARBON DIOXIDE 23 mmol/L (22-30); GFR AFRICAN-AMERICAN > 60
[2016-11-25 17:51] LABS: ALB/GLOB RATIO 1.1 (1.0-2.1); ALKALINE PHOSPHATASE 47 U/L (38-126); ALT/SGPT 37 U/L (21-72); AST/SGOT 49 U/L (17-59); BLOOD UREA NITROGEN 14 mg/dL (9-20); CALCIUM 8.7 mg/dl (8.6-10.4); GLUCOSE,RANDOM 83 mg/dL (75-110); TOTAL PROTEIN 6.8 g/dL (6.3-8.3)
[2016-11-26 09:03] VITALS: O2SAT 98
[2016-11-26] MEDS: Pantoprazole 40 mg EC Tab PO SCH (09:58)
[2016-11-26] MEDS: Multiple Vitamins Tab PO SCH (09:59)
[2016-11-26] MEDS: Tolterodine 2 mg ER Cap PO SCH (09:59)
[2016-11-26] MEDS: Enoxaparin 40 mg Syringe SC SCH (10:00)
--- NOTE | 2016-11-26 14:54 | CP.PCM.PN ---
Subjective - Date & Time of Evaluation Date of Evaluation: 11/26/16 Objective - Vital Signs/Intake and Output Vital Signs (last 24 hours): Temp Pulse Resp BP Pulse Ox 97.7 F 73 20 141/95 H 98 11/26/16 09:01 11/26/16 09:01 11/26/16 09:01 11/26/16 09:59 11/26/16 09:09 Intake and Output: 11/26/16 11/26/16 06:59 18:59 Intake Total 700 Balance 700 - Medications Medications: Current Medications Aspirin (Aspirin) 325 mg PO DAILY [facility] Last Admin: 11/26/16 10:00 Dose: 325 mg Benztropine Mesylate (Cogentin) 2 mg PO DAILY [facility] Last Admin: 11/26/16 09:58 Dose: 2 mg Carvedilol (Coreg) 25 mg PO BID [facility] Last Admin: 11/26/16 09:59 Dose: 25 mg Celecoxib (Celebrex) 200 mg PO DAILY [facility] Last Admin: 11/26/16 10:00 Dose: 200 mg Enoxaparin Sodium (Lovenox) 40 mg SC DAILY [facility] Last Admin: 11/26/16 10:00 Dose: 40 mg Ergocalciferol (Drisdol 50,000 Intl Units Cap) 1 cap PO Q7D [facility] Last Admin: 11/20/16 21:45 Dose: Not Given Fluoxetine HCl (Prozac) 20 mg PO DAILY [facility] Last Admin: 11/26/16 10:00 Dose: 20 mg Metformin HCl (Glucophage) 500 mg PO BID [facility] Last Admin: 11/26/16 10:00 Dose: 500 mg Multivitamins (Hexavitamin) 1 tab PO DAILY [facility] Last Admin: 11/26/16 09:59 Dose: 1 tab Olanzapine (Zyprexa) 5 mg PO HS [facility] Last Admin: 11/25/16 22:45 Dose: 5 mg Pantoprazole Sodium (Protonix Ec Tab) 40 mg PO DAILY [facility] Last Admin: 11/26/16 09:58 Dose: 40 mg Risperidone (Risperdal Tab) 2 mg PO BID [facility] Last Admin: 11/26/16 10:00 Dose: 2 mg Tolterodine Tartrate (Detrol La) 2 mg PO DAILY [facility] Last Admin: 11/26/16 09:59 Dose: 2 mg - Labs Labs: 11/25/16 17:16 11/25/16 17:16
[2016-11-26 16:41] VITALS: BP 126/87; PULSE 80; TEMP 97.6
== END 2016-11-26 18:12 | DRG 34 ==
LOC: C.ER 11:22 → C.9E 15:37 → C.5T 17:02
PROVIDERS: ADMIT Internal Medicine Nephrology; ATTEND Internal Medicine Nephrology
DX: R26.81 Unsteadiness on feet (principal); E10.40 Type 1 diabetes mellitus with diabetic neuropathy, unspecified; W19.XXXA Unspecified fall, initial encounter; I10 Essential (primary) hypertension; F31.9 Bipolar disorder, unspecified; E66.9 Obesity, unspecified; Z91.81 History of falling; Z79.4 Long term (current) use of insulin; Y92.9 Unspecified place or not applicable

== ENCOUNTER 2016-11-30 21:05 | Inpatient (IN) | payer MEDICAID ==
--- NOTE | 2016-11-30 21:27 | C.PDOC ---
History Of Present Illness 66 y/o male referred to ED by Dr Golden Barlow for weakness the last 2 days. Pt states he was on an exercise bike today and arms felt tired and weak after. Denies numbness, headache, dizziness or any other complaints. Time Seen by Provider: 11/30/16 21:23 Chief Complaint (Nursing): Medical Clearance History Per: Patient History/Exam Limitations: no limitations Onset/Duration Of Symptoms: Days Current Symptoms Are (Timing): Still Present Severity: Mild Recent travel outside of the [place]: No Past Medical History Reviewed: Historical Data, Nursing Documentation, Vital Signs Vital Signs: Last Vital Signs Temp 98.2 F 11/30/16 21:12 Pulse 73 11/30/16 21:12 Resp 18 11/30/16 21:12 BP 141/92 H 11/30/16 21:12 Pulse Ox 99 11/30/16 21:34 - Medical History PMH: Bipolar Disorder, HTN Family History: States: Unknown Family Hx - Social History Hx Alcohol Use: No Hx Substance Use: No - Immunization History Hx Tetanus Toxoid Vaccination: No Hx Influenza Vaccination: Yes Hx Pneumococcal Vaccination: Yes Review Of Systems Except As Marked, All Systems Reviewed And Found Negative. Constitutional: Negative for: Fever Neurological: Positive for: Weakness (arms). Negative for: Numbness, Headache, Dizziness Physical Exam - Physical Exam Appears: Non-toxic, No Acute Distress Skin: Warm, Dry, No Rash Head: Atraumatic, Normacephalic Neck: Normal, Normal ROM, Supple Chest: Symmetrical Cardiovascular: Rhythm Regular, No Murmur Respiratory: Normal Breath Sounds, No Rales, No Rhonchi, No Wheezing Gastrointestinal/Abdominal: Soft, No Tenderness, Other (obese) Extremity: Normal ROM, Capillary Refill (<2 seconds), No Deformity, No Swelling Extremity: Bilateral: Atraumatic Neurological/Psych: Oriented x3, Normal Speech, Normal Motor, Normal Sensation ED Course And Treatment - Laboratory Results Result Diagrams: 11/30/16 22:20 11/30/16 22:20 Lab Interpretation: Normal (trop neg.) ECG: Interpreted By Me ECG Rhythm: Sinus Rhythm ECG Interpretation: Normal Rate From EC O2 Sat by Pulse Oximetry: 99 (room air) Pulse Ox Interpretation: Normal - Radiology CXR: Interpreted by Me CXR Interpretation: Yes: No Acute Disease Reevaluation Time: 23:11 Reassessment Condition: Unchanged (remains asymptomatic) - Physician Consult Information Outcome Of Conversation: [id number]: d/w Dr. Debra Barlow- PMD- ok to Obs. Medical Decision Making Medical Decision Making: weakness after mild exercise on an exercise bike. normal eval and w/u. Obs Disposition Doctor Will See Patient In The: Hospital Counseled Patient/Family Regarding: Studies Performed, Diagnosis - Disposition Disposition: HOSPITALIZED Disposition Time: 23:12 Condition: GOOD Instructions: Weakness (ED) - Clinical Impression Clinical Impression: Weakness - Scribe Statement The provider has reviewed the documentation as recorded by the Emilie Guadalupe Provider Attestation: All medical record entries made by the Emilie were at my direction and personally dictated by me. I have reviewed the chart and agree that the record accurately reflects my personal performance of the history, physical exam, medical decision making, and the department course for this patient. I have also personally directed, reviewed, and agree with the discharge instructions and disposition.
[2016-11-30 22:26] LABS: BASO % 0.8 % (0.0-2.0); EOS # 0.2 K/uL (0.0-0.7); EOS % 5.2 % (0.0-4.0); HEMATOCRIT 38.4 % (35.0-51.0); LYMPH # 1.7 K/uL (1.0-4.3); LYMPH % 38.8 % (20.0-40.0); MEAN CELL VOLUME 92.6 fL (80.0-94.0); MEAN CORPUSCULAR HEMOGLOBIN 31.1 pg (27.0-31.0); MEAN CORPUSCULAR HGB CONC 33.6 g/dL (33.0-37.0); MEAN PLATELET VOLUME 7.7 fL (7.2-11.7); MONO # 0.5 K/uL (0.0-0.8); MONO % 11.2 % (0.0-10.0); NRBC % 0.1 % (0.0-2.0); RED CELL DISTRIBUTION WIDTH 13.3 % (11.5-14.5); WHITE BLOOD COUNT 4.3 K/uL (4.8-10.8)
[2016-11-30 22:33] LABS: CHLORIDE 103 mmol/L (98-107); POTASSIUM 4.1 mmol/L (3.6-5.2); SODIUM 136 mmol/L (132-148)
[2016-11-30 22:36] LABS: ALB/GLOB RATIO 1.1 (1.0-2.1); ALKALINE PHOSPHATASE 51 U/L (38-126); ALT/SGPT 68 U/L (21-72); AST/SGOT 46 U/L (17-59); BILIRUBIN,TOTAL 0.5 mg/dL (0.2-1.3); BLOOD UREA NITROGEN 24 mg/dL (9-20); CARBON DIOXIDE 25 mmol/L (22-30); GFR AFRICAN-AMERICAN > 60; GLUCOSE,RANDOM 91 mg/dL (75-110); TOTAL PROTEIN 6.9 g/dL (6.3-8.3)
[2016-11-30 23:04] LABS: URINE BACTERIA RARE (<OCC); URINE BILIRUBIN NEGATIVE (NEGATIVE); URINE BLOOD NEGATIVE (NEGATIVE); URINE COLOR Yellow (YELLOW); URINE GLUCOSE (UA) NORMAL (Normal); URINE KETONE NEGATIVE (NEGATIVE); URINE LEUKOCYTE ESTERASE NEG Leu/uL (Negative); URINE PROTEIN NEGATIVE (NEGATIVE); URINE UROBILINOGEN NORMAL mg/dL (0.2-1.0); WBC URINE < 1 /hpf (0-5)
--- NOTE | 2016-12-01 07:44 | RAD ---
PROCEDURE: CHEST RADIOGRAPH, 1 VIEW HISTORY: SOB COMPARISON: None available. FINDINGS: LUNGS: Mild venous congestion. Upper lobe granulomatous changes. PLEURA: No pneumothorax or pleural fluid seen. CARDIOVASCULAR: Cardiomegaly. Mild calcification at the aortic knob. OSSEOUS STRUCTURES: No significant abnormalities. VISUALIZED UPPER ABDOMEN: Normal. OTHER FINDINGS: None. IMPRESSION: Mild venous congestion. Upper lobe granulomatous changes.
[2016-12-01] MEDS: Enoxaparin 40 mg Syringe SC SCH (10:41)
--- NOTE | 2016-12-01 14:58 | CP.PCM.HP ---
Past Patient History - Infectious Disease Hx of Infectious Diseases: None - Past Medical History & Family History Past Medical History?: Yes - Past Social History Smoking Status: Never Smoked - CARDIAC Hx Hypertension: Yes - NEUROLOGICAL Other/Comment: tremors - ENDOCRINE/METABOLIC Hx Diabetes Mellitus Type 1: Yes - MUSCULOSKELETAL/RHEUMATOLOGICAL Hx Falls: Yes - GASTROINTESTINAL Hx Gastroesophageal Reflux: Yes - PSYCHIATRIC Hx Bipolar Disorder: Yes Hx Substance Use: No - SURGICAL HISTORY Hx Surgeries: Yes Other/Comment: retinal detachment in 1981 - ANESTHESIA Hx Anesthesia: No Hx Anesthesia Reactions: No Hx Malignant Hyperthermia: No Has any member of the family had a problem w/ anesthesia?: No Meds Allergies/Adverse Reactions: Allergies Allergy/AdvReac Type Severity Reaction Status Date / Time olive oil Allergy Mild Verified 11/30/16 21:22 Physical Exam - Constitutional Appears: Well - Head Exam Head Exam: ATRAUMATIC, NORMAL INSPECTION, NORMOCEPHALIC - Eye Exam Eye Exam: EOMI, Normal appearance, PERRL Pupil Exam: NORMAL ACCOMODATION, PERRL - ENT Exam ENT Exam: Mucous Membranes Moist, Normal Exam - Neck Exam Neck exam: Positive for: Normal Inspection - Respiratory Exam Respiratory Exam: Decreased Breath Sounds - Cardiovascular Exam Cardiovascular Exam: REGULAR RHYTHM, +S1, +S2 - GI/Abdominal Exam GI & Abdominal Exam: Diminished Bowel Sounds, Soft - Rectal Exam Rectal Exam: Deferred Results - Vital Signs Recent Vital Signs: Last Vital Signs Temp 97.9 F 12/01/16 08:09 Pulse 68 12/01/16 08:09 Resp 20 12/01/16 08:09 BP 164/98 H 12/01/16 08:09 Pulse Ox 95 12/01/16 08:09 - Labs Result Diagrams: 11/30/16 22:20 11/30/16 22:20 Labs: Laboratory Results - last 24 hr 12/01/16 06:06 POC Glucose (mg/dL) 90
--- NOTE | 2016-12-01 16:20 | RAD ---
PROCEDURE: Radiographs of the chest and abdomen (obstructive series) HISTORY: constipation COMPARISON: No prior. TECHNIQUE: AP radiograph of the chest, with upright and supine radiographs of the abdomen. FINDINGS: CHEST: Lungs: Clear. Cardiovascular: Normal size heart. No pulmonary vascular congestion. Pleura: No pleural fluid. No pneumothorax. Other findings: None. ABDOMEN AND PELVIS: Bowel: Moderate retained feces. No evidence of bowel obstruction. Gas seen in large and small bowel loops. No air-fluid levels on upright view. Free air: None. Bones: Unremarkable. Other findings: None. IMPRESSION: No evidence of bowel obstruction. Moderate retained feces.
[2016-12-01] MEDS: Magnesium Hydroxide Susp 30 ml UD PO SCH (16:38)
[2016-12-01] MEDS ORDERED: Iohexol 240 (50 ml) PO ONE (18:36)
[2016-12-01] MEDS ORDERED: Iohexol 350mg/ml 100 ML ONE (19:01)
--- NOTE | 2016-12-01 19:17 | CON ---
DATE: 12/01/2016 ATTENDING PHYSICIAN: Chris Barlow MD LOCATION: The patient is in room #559, bed 2. REASON FOR THE CONSULTATION: Weakness. CHIEF COMPLAINT: The patient was brought into [facility] with a history of abrupt onset of weakness while he was exercising himself on the bike. From neurological point of view, I was called in to evaluate him for further management. HISTORY OF PRESENT ILLNESS: The patient is a 66-year-old moderately obese, right-handed male presenting with abrupt onset of weakness while he was using a stationary bike in the [place]. No history of dizziness. No history of neck pain. No history of headache. No history of visual or bulbar dysfunction. No history of focal weakness of his legs. No history of involuntary movements. Recently was admitted in [facility] for change in mental status. He did have workup and he was discharged to the rehabilitation. He was brought into [facility] with increasing new weakness of his arms. PAST MEDICAL HISTORY: Non-insulin dependent diabetes mellitus, hypertension, dyslipidemia, schizophrenia. 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 PERSONAL HISTORY: Denies smoking or alcohol use. He was a heavy alcohol user more than 20 years ago. REVIEW OF SYSTEMS: As per H and P. MEDICATIONS: Celebrex, Cogentin, Detrol, Drisdol, Glucotrol-XL, vitamin, Lovenox, milk of magnesia, Protonix, Prozac, Tylenol and Zyprexa. PHYSICAL EXAMINATION: VITAL SIGNS: Blood pressure 138/90, mean arterial pressure 106, respiratory rate 16, temperature afebrile. NECK: Supple. No carotid bruit. HEART: Sounds regular. CHEST: Fair air entry. EXTREMITIES: No edema in legs. NEUROLOGIC EXAMINATION: MENTAL STATUS EXAMINATION: He is awake, alert. Oriented to person, place, and time. Speech is clear. Naming, repetition, fluency, comprehension all within normal. No sign of hallucination. No sign of suicidal ideation. CRANIAL NERVE EXAMINATION: Left eye blindness, right eye vision intact. Visual sellers intact. Extraocular movements markedly decreased in all directions. No facial sensory deficit, no facial asymmetry, persistent oral lingual dyskinesia consistent with tardive dyskinesia from his longstanding use of neuroleptics. MOTOR: Outstretched hand with eyes closed, no drift noted. He was not able to lift both arms against the gravity, because of the proximal weakness, left more than his right arm. Motor examination of the lower extremities seems to be intact. No fasciculations noted at rest. DEEP TENDON REFLEXES: Right biceps 2+, left side absent. Right brachioradialis 2+, left brachioradialis absent. Triceps absent left side, right side 2+, both knees at 3+, both ankles are absent. Plantars are upgoing on both sides. SENSORY: Significant distal sensory motor neuropathy noted. No cortical sensory loss. No dermatome sensory loss. COORDINATION: [id number] test is dysmetria because of weakness of his arm. GAIT: Deferred at this time. ASSESSMENT: 1. On examination of the neck, severe cervical anterior pop with elevated right shoulder and hypertrophy of the trapezius muscle group and Scalene muscle groups. This is all consistent with a possible cervical acquired myelopathy from his cervical disk disease. 2. The patient also presenting with tardive dyskinesia secondary to his longstanding use of neuroleptics. No sign of extrapyramidal sign noted. 3. Significant distal sensory and motor neuropathy. RECOMMENDATIONS: 1. Blood workup as per the order. 2. Thiamine supplement. 3. MRI of the cervical spine and physical therapy should be started. The patient should be kept on DVT prophylaxis and fall precaution. The patient's condition has been discussed with him. The patient agreed with the plan of management. Erlin Armstrong MD cc: [id number] TT: 12/01/2016 19:17:31 Confirmation # [id number] Dictation # [id number] MTDD
[2016-12-01 20:56] LABS: FREE T4 0.99 ng/dL (0.78-2.19)
[2016-12-01 21:36] LABS: FOLATE 14.4 ng/mL
--- NOTE | 2016-12-02 08:12 | CP.PCM.CON ---
<Kaylen Miller - Last Filed: 12/02/16 09:53> History of Present Illness - History of Present Illness History of Present Illness: Gastroenterology Fellow/PGY4 Consult Note 66 year old male with history of obesity, left eye blindness,Diabetes, Hypertension, Schizophrenia, and Hyperlipidemia presenting with weakness. Patient describes feeling well yesterday prior to exercise on stationary bike with sudden onset of weakness of all extremities and slowed body movements leading to ER presentation. Denies nausea, vomiting, hematemesis, heartburn, indigestion, acid reflux, abdominal pain, distension, diarrhea, melena, hematochezia,, or unintentional weight loss. Notes no bowel movement for for five to six days prior to ER presentation. Admits to adequate water, fruits, and vegetable intake. Usual normal daily bowel habits. No prior EGD or colonoscopy. Family- denies colon cancer Social- quit Alcohol use over 20 years prior, denies tobacco and illicit drug use Surgery- left eye retinal detachment Review of Systems - Review of Systems Review of Systems: A 12-point review of systems negative except for as above Past Patient History - Infectious Disease Hx of Infectious Diseases: None - Past Medical History & Family History Past Medical History?: Yes - Past Social History Smoking Status: Never Smoked - CARDIAC Hx Hypertension: Yes - NEUROLOGICAL Other/Comment: tremors - ENDOCRINE/METABOLIC Hx Diabetes Mellitus Type 1: Yes - MUSCULOSKELETAL/RHEUMATOLOGICAL Hx Falls: Yes - GASTROINTESTINAL Hx Gastroesophageal Reflux: Yes - PSYCHIATRIC Hx Bipolar Disorder: Yes Hx Substance Use: No - SURGICAL HISTORY Hx Surgeries: Yes Other/Comment: retinal detachment in 1981 - ANESTHESIA Hx Anesthesia: No Hx Anesthesia Reactions: No Hx Malignant Hyperthermia: No Has any member of the family had a problem w/ anesthesia?: No Meds Allergies/Adverse Reactions: Allergies Allergy/AdvReac Type Severity Reaction Status Date / Time olive oil Allergy Mild Verified 11/30/16 21:22 - Medications Medications: Current Medications Acetaminophen (Tylenol 325mg Tab) 650 mg PO Q4 PRN PRN Reason: PAIN MILD Benztropine Mesylate (Cogentin) 2 mg PO DAILY [facility] Celecoxib (Celebrex) 200 mg PO DAILY [facility] Enoxaparin Sodium (Lovenox) 40 mg SC DAILY [facility] Last Admin: 12/01/16 10:41 Dose: 40 mg Ergocalciferol (Drisdol 50,000 Intl Units Cap) 1 cap PO QWK [facility] Fluoxetine HCl (Prozac) 20 mg PO DAILY [facility] Lactulose (Enulose) 20 gm PO HS [facility] Last Admin: 12/01/16 22:27 Dose: 20 gm Magnesium Hydroxide (Milk Of Magnesia) 30 ml PO DAILY [facility] Last Admin: 12/01/16 16:38 Dose: 30 ml Metformin HCl (Glucophage) 500 mg PO BIDCC [facility] Last Admin: 12/01/16 16:38 Dose: 500 mg Multivitamins (Hexavitamin) 1 tab PO DAILY [facility] Olanzapine (Zyprexa) 5 mg PO DAILY [facility] Pantoprazole Sodium (Protonix Ec Tab) 40 mg PO DAILY [facility] Thiamine HCl (Vitamin B1 Tab) 100 mg PO DAILY [facility] Tolterodine Tartrate (Detrol La) 2 mg PO DAILY [facility] Physical Exam - Constitutional Appears: Non-toxic, No Acute Distress - Head Exam Head Exam: ATRAUMATIC, NORMOCEPHALIC - Eye Exam Eye Exam: EOMI, PERRL Pupil Exam: PERRL. absent: Miosis, Mydriatic - ENT Exam ENT Exam: Mucous Membranes Moist, Normal Oropharynx - Neck Exam Neck exam: Positive for: Full Rom, Normal Inspection - Respiratory Exam Respiratory Exam: Clear to Auscultation Bilateral. absent: Rales, Rhonchi, Wheezes - Cardiovascular Exam Cardiovascular Exam: RRR, +S1, +S2. absent: Gallop, Rubs - GI/Abdominal Exam GI & Abdominal Exam: Distended, Normal Bowel Sounds, Soft. absent: Firm, Guarding, Organomegaly, Rebound, Rigid, Tenderness Additional comments: distended at baseline per patient - Extremities Exam Extremities exam: Positive for: full ROM. Negative for: pedal edema - Neurological Exam Neurological exam: Alert - Psychiatric Exam Psychiatric exam: Normal Affect, Normal Mood - Skin Skin Exam: Dry, Intact, Normal Color, Warm Results - Vital Signs Recent Vital Signs: Last Vital Signs Temp 97.4 F L 12/02/16 07:28 Pulse 64 12/02/16 07:28 Resp 20 12/02/16 07:28 BP 145/92 H 12/02/16 07:28 Pulse Ox 97 12/02/16 07:28 - Labs Result Diagrams: 11/30/16 22:20 11/30/16 22:20 Labs: Laboratory Results - last 24 hr 12/01/16 12/01/16 12/01/16 16:51 20:06 20:06 POC Glucose (mg/dL) 120 H Vitamin B12 > 1000 H Folate 14.4 Free T4 0.99 TSH 3rd Generation 2.00 RPR 12/01/16 12/01/16 12/02/16 20:06 21:29 06:04 POC Glucose (mg/dL) 131 H 97 Vitamin B12 Folate Free T4 TSH 3rd Generation RPR Nonreactive Assessment & Plan - Assessment and Plan (Free Text) Assessment: 66 year old male with history of obesity, left eye blindness,Diabetes, Hypertension, Schizophrenia, and Hyperlipidemia presenting with weakness. GI consultation for abdominal distension. No prior EGD or colonoscopy. Plan: >CT A/P-severe constipation >bowel movement yesterday with milk of magnesia >ordered tap water enema, and mineral oil enema >Miralax daily >abdominal pain resolved >GNR UTI >recommend antibiotic coverage >neuro managing- weakness, MRI C-spine >benefit from elective colonoscopy for CRC screening <Brandon Peterson - Last Filed: 12/02/16 10:18> Meds - Medications Medications: Current Medications Acetaminophen (Tylenol 325mg Tab) 650 mg PO Q4 PRN PRN Reason: PAIN MILD Benztropine Mesylate (Cogentin) 2 mg PO DAILY [facility] Last Admin: 12/02/16 09:26 Dose: 2 mg Celecoxib (Celebrex) 200 mg PO DAILY [facility] Last Admin: 12/02/16 09:25 Dose: 200 mg Enoxaparin Sodium (Lovenox) 40 mg SC DAILY [facility] Last Admin: 12/02/16 09:27 Dose: 40 mg Ergocalciferol (Drisdol 50,000 Intl Units Cap) 1 cap PO QWK [facility] Last Admin: 12/02/16 09:25 Dose: 1 cap Fluoxetine HCl (Prozac) 20 mg PO DAILY [facility] Last Admin: 12/02/16 09:26 Dose: 20 mg Lactulose (Enulose) 20 gm PO HS [facility] Last Admin: 12/01/16 22:27 Dose: 20 gm Magnesium Hydroxide (Milk Of Magnesia) 30 ml PO DAILY [facility] Last Admin: 12/02/16 09:27 Dose: 30 ml Metformin HCl (Glucophage) 500 mg PO BIDCC [facility] Last Admin: 12/01/16 16:38 Dose: 500 mg Multivitamins (Hexavitamin) 1 tab PO DAILY [facility] Last Admin: 12/02/16 09:26 Dose: 1 tab Olanzapine (Zyprexa) 5 mg PO DAILY [facility] Last Admin: 12/02/16 09:26 Dose: 5 mg Pantoprazole Sodium (Protonix Ec Tab) 40 mg PO DAILY [facility] Last Admin: 12/02/16 09:25 Dose: 40 mg Polyethylene Glycol (Miralax) 17 gm PO DAILY [facility] Thiamine HCl (Vitamin B1 Tab) 100 mg PO DAILY [facility] Last Admin: 12/02/16 09:25 Dose: 100 mg Tolterodine Tartrate (Detrol La) 2 mg PO DAILY [facility] Last Admin: 12/02/16 09:26 Dose: 2 mg Results - Vital Signs Recent Vital Signs: Last Vital Signs Temp 97.4 F L 12/02/16 07:28 Pulse 64 12/02/16 07:28 Resp 20 12/02/16 07:28 BP 145/92 H 12/02/16 07:28 Pulse Ox 97 12/02/16 07:28 - Labs Result Diagrams: 11/30/16 22:20 11/30/16 22:20 Labs: Laboratory Results - last 24 hr 12/01/16 12/01/16 12/01/16 16:51 20:06 20:06 POC Glucose (mg/dL) 120 H Vitamin B12 > 1000 H Folate 14.4 Free T4 0.99 TSH 3rd Generation 2.00 RPR 12/01/16 12/01/16 12/02/16 20:06 21:29 06:04 POC Glucose (mg/dL) 131 H 97 Vitamin B12 Folate Free T4 TSH 3rd Generation RPR Nonreactive Attending/Attestation - Attestation I have personally seen and examined this patient.: Yes I have fully participated in the care of the patient.: Yes I have reviewed all pertinent clinical information: Yes Notes (Text): 12/02/16 10:12 I have seen and examined patient with GI fellow. Agree with above documentation with the following additions. In brief, this is a 66 year old male with history of obesity, schizophrenia, DM, HTN who presented to hospital with weakness. He is currently undergoing neurology workup for sudden onset weakness which he describes started yesterday. GI called for abdominal distention and pain. He describes chronic constipation and recently has not had any bowel movements for the past 6 days. He notes mild abdominal discomfort , generalized without any associated nausea, vomiting, fever/chills, weight loss , rectal bleeding, or change in bowel habits. No prior endoscopic evaluation. Obesity Schizophrenia DM / HTN Chronic constipation, abdominal distention/pain CT imaging reviewed by me showing extensive fecal retention throughout colon UTI - Diet as tolerated - Follow up neurology recommendations - Patient had a large bowel movement yesterday after administration of magnesium citrate. Would give another 2 enemas today, tap water and mineral oil , followed by placement on aggressive bowel regimen to prevent ongoing constipation. - Begin twice daily miralax and stool softner therapy - Encourage patient to increase PO water and fiber intake - Patient would benefit from elective outpatient colonoscopy, particularly since patient has never had before. No ongoing GI issues, abdominal pain has resolved following bowel movement yesterday. Will sign off case, please reconsult as necessary, thank you.
[2016-12-02] MEDS: Pantoprazole 40 mg EC Tab PO SCH (09:25)
[2016-12-02] MEDS: Ergocalciferol 50,000 Intl Units Cap PO SCH (09:25)
[2016-12-02] MEDS: Multiple Vitamins Tab PO SCH (09:26)
[2016-12-02] MEDS: Tolterodine 2 mg ER Cap PO SCH (09:26)
[2016-12-02] MEDS: Enoxaparin 40 mg Syringe SC SCH (09:27)
[2016-12-02] MEDS: Magnesium Hydroxide Susp 30 ml UD PO SCH (09:27)
--- NOTE | 2016-12-02 09:46 | CT ---
PROCEDURE: CT Abdomen and Pelvis with contrast HISTORY: abd distention COMPARISON: None. TECHNIQUE: Contrast dose: 100 cc Omnipaque 350 Radiation dose: Total exam DLP = last 1205.50 mGy-cm. This CT exam was performed using one or more of the following dose reduction techniques: Automated exposure control, adjustment of the mA and/or kV according to patient size, and/or use of iterative reconstruction technique. FINDINGS: LOWER THORAX: Incompletely visualized pericardial effusion. Maximal thickness 2.4 cm. LIVER: Unremarkable. No gross lesion or ductal dilatation. Incidental finding(s): Simple cyst right hepatic lobe GALLBLADDER AND BILE DUCTS: Unremarkable. PANCREAS: Unremarkable. No gross lesion or ductal dilatation. SPLEEN: Unremarkable. ADRENALS: Unremarkable. No mass. KIDNEYS AND URETERS: Unremarkable. No hydronephrosis. No solid mass. Incidental finding(s): Simple cyst left kidney 2.2 cm lower pole. VASCULATURE: Unremarkable. No aortic aneurysm. BOWEL: Constipation without fecal impaction or obstruction. APPENDIX: Normal appendix. PERITONEUM: Unremarkable. No free fluid. No free air. LYMPH NODES: Unremarkable. No enlarged lymph nodes. BLADDER: Unremarkable. REPRODUCTIVE: Unremarkable. BONES: No acute fracture. Incidental finding(s): Hum angioma L3 vertebral body. OTHER FINDINGS: None. IMPRESSION: No acute findings related to/accounting for the clinical presentation. Additional benign and/or incidental findings described above. Concordant results (preliminary interpretation) provided by [employer]. Procedure Completed: 22:13. Preliminary ([employer]) Report: Dictated and Authenticated: 22:53. Final Interpretation: 09:44. December 02, 2016.
[2016-12-02] MEDS ORDERED: Mineral Oil Enema 135 ml RC ONE (09:54)
[2016-12-02] MEDS ORDERED: NIACIN 500 MG PO SCH (10:00)
[2016-12-02] MEDS: POLYETHYLENE GLYCOL 3350 17 GM/Dose PACKET PO SCH (11:44)
--- NOTE | 2016-12-02 13:47 | CP.PCM.PN ---
Subjective - Date & Time of Evaluation Date of Evaluation: 12/02/16 Time of Evaluation: 11:00 - Subjective Subjective: clinically same Objective - Vital Signs/Intake and Output Vital Signs (last 24 hours): Temp Pulse Resp BP Pulse Ox 97.4 F L 64 20 145/92 H 97 12/02/16 07:28 12/02/16 07:28 12/02/16 07:28 12/02/16 07:28 12/02/16 07:28 - Medications Medications: Current Medications Acetaminophen (Tylenol 325mg Tab) 650 mg PO Q4 PRN PRN Reason: PAIN MILD Benztropine Mesylate (Cogentin) 2 mg PO DAILY [facility] Last Admin: 12/02/16 09:26 Dose: 2 mg Celecoxib (Celebrex) 200 mg PO DAILY [facility] Last Admin: 12/02/16 09:25 Dose: 200 mg Enoxaparin Sodium (Lovenox) 40 mg SC DAILY [facility] Last Admin: 12/02/16 09:27 Dose: 40 mg Ergocalciferol (Drisdol 50,000 Intl Units Cap) 1 cap PO QWK [facility] Last Admin: 12/02/16 09:25 Dose: 1 cap Fluoxetine HCl (Prozac) 20 mg PO DAILY [facility] Last Admin: 12/02/16 09:26 Dose: 20 mg Lactulose (Enulose) 20 gm PO HS [facility] Last Admin: 12/01/16 22:27 Dose: 20 gm Magnesium Hydroxide (Milk Of Magnesia) 30 ml PO DAILY [facility] Last Admin: 12/02/16 09:27 Dose: 30 ml Metformin HCl (Glucophage) 500 mg PO BIDCC [facility] Last Admin: 12/01/16 16:38 Dose: 500 mg Multivitamins (Hexavitamin) 1 tab PO DAILY [facility] Last Admin: 12/02/16 09:26 Dose: 1 tab Olanzapine (Zyprexa) 5 mg PO DAILY [facility] Last Admin: 12/02/16 09:26 Dose: 5 mg Pantoprazole Sodium (Protonix Ec Tab) 40 mg PO DAILY [facility] Last Admin: 12/02/16 09:25 Dose: 40 mg Polyethylene Glycol (Miralax) 17 gm PO DAILY [facility] Last Admin: 12/02/16 11:44 Dose: 17 gm Thiamine HCl (Vitamin B1 Tab) 100 mg PO DAILY [facility] Last Admin: 12/02/16 09:25 Dose: 100 mg Tolterodine Tartrate (Detrol La) 2 mg PO DAILY [facility] Last Admin: 12/02/16 09:26 Dose: 2 mg - Constitutional Appears: Well - Head Exam Head Exam: ATRAUMATIC, NORMAL INSPECTION, NORMOCEPHALIC - Eye Exam Eye Exam: EOMI, Normal appearance, PERRL Pupil Exam: NORMAL ACCOMODATION, PERRL - ENT Exam ENT Exam: Mucous Membranes Moist, Normal Exam - Neck Exam Neck Exam: Full ROM, Normal Inspection. absent: Lymphadenopathy - Respiratory Exam Respiratory Exam: Decreased Breath Sounds - Cardiovascular Exam Cardiovascular Exam: REGULAR RHYTHM, +S1, +S2 - GI/Abdominal Exam GI & Abdominal Exam: Soft, Diminished Bowel Sounds - Rectal Exam Rectal Exam: Deferred
[2016-12-02 16:01] LABS: BASO % 0.7 % (0.0-2.0); EOS # 0.3 K/uL (0.0-0.7); EOS % 5.1 % (0.0-4.0); HEMATOCRIT 39.2 % (35.0-51.0); LYMPH # 1.5 K/uL (1.0-4.3); LYMPH % 30.6 % (20.0-40.0); MEAN CELL VOLUME 92.9 fL (80.0-94.0); MEAN CORPUSCULAR HEMOGLOBIN 31.1 pg (27.0-31.0); MEAN CORPUSCULAR HGB CONC 33.5 g/dL (33.0-37.0); MEAN PLATELET VOLUME 8.2 fL (7.2-11.7); MONO # 0.6 K/uL (0.0-0.8); NRBC % 0.1 % (0.0-2.0); RED CELL DISTRIBUTION WIDTH 13.1 % (11.5-14.5); WHITE BLOOD COUNT 4.9 K/uL (4.8-10.8)
[2016-12-02 16:09] LABS: CHLORIDE 98 mmol/L (98-107); SODIUM 138 mmol/L (132-148)
--- NOTE | 2016-12-02 16:09 | MRI ---
PROCEDURE: MRI of the cervical spine dated 12/02/2016 HISTORY: Cervical myelopathy COMPARISON: No prior TECHNIQUE: Multiecho multiplanar sequences were performed through the cervical spine before and following intravenous injection of approximately 20 cc Omniscan contrast material. FINDINGS: The current study reveals no acute compression fractures no retropulsed fragments. Chronic appearing anterior stature loss of the C5, C6 and to a lesser degree C7 and C4 segments felt to be degenerative in origin. The remaining vertebral bodies otherwise exhibit normal stature. There is straightening of the normal cervical lordosis which could be in part secondary to patient positioning gantry however underlying element of muscle spasm may contribute. Vertebral bodies and facets are otherwise normally aligned. Multilevel degenerative spondylosis. At the C3-C4 level, there is disc desiccation however disc space height is relatively maintained. Moderate-sized central and bilateral disc herniation ridge complex on larger on the left than right is present. Changes result in significant canal compromise and cord compression. There is also increased T2 signal seen within the visualized spinal cord at this level consistent with gliosis/myelomalacia. . There is also enhancement seen within the epidural space at this level extending into the along the dura of the exit foramina. Changes may be reactive due to edema/ increased vascular congestion and granulation tissue surrounding the disc material . Infection is much less likely though not completely excluded. At The C4-C5 level, there is marked disc desiccation and disc space narrowing. Small osteophytic ridge disc complex minimally flattens the ventral surface of the thecal sac and spinal cord. Central canal is mildly narrowed. Hypertrophic uncovertebral and facet joints with bilateral foraminal stenosis. At the C5-C6 level, disc desiccation and disc space narrowing. Minimal broad-based bulge of the posterior annulus results in some flattening the ventral surface of thecal sac hand reaching the ventral surface of the cord. The. Central canal appears adequate. Hypertrophic uncovertebral facets result in bilateral foraminal stenosis. At the C6-C7 level, there is disc desiccation and disc space narrowing with small broad-based bulge of the posterior annulus. The changes result in mild flattening the ventral surface of the thecal sac. Central canal is marginal to minimally narrowed. Exit foramina are stenotic bilaterally due to overgrown uncovertebral facets. There is also mild broad-based bulge of the posterior annulus at the C7-T1 level without cord compression. Impression: Large central and bilateral left larger than right) disc herniation at the C3-C4 level results in significant canal stenosis and cord compression. There is prolonged T2 signal seen within the spinal cord at this level consistent with gliosis/ myelomalacia. There also appears to be some enhancement in the epidural space surrounding this area likely reactive due to edema/increased vascular congestion and granulation tissue surrounding the disc material. . Epidural infection would be much less likely though not completely excluded. Note that these findings discussed with 5 tower Nurse [place] at approximately 4:00 p.m. with written down and read back verification. Multilevel degenerative spondylosis seen at the remaining levels.
[2016-12-02 16:11] LABS: GFR AFRICAN-AMERICAN > 60
[2016-12-02 16:12] LABS: ALB/GLOB RATIO 1.1 (1.0-2.1); ALKALINE PHOSPHATASE 54 U/L (38-126); ALT/SGPT 67 U/L (21-72); AST/SGOT 41 U/L (17-59); BILIRUBIN,TOTAL 0.5 mg/dL (0.2-1.3); BLOOD UREA NITROGEN 11 mg/dL (9-20); CARBON DIOXIDE 29 mmol/L (22-30); GLUCOSE,RANDOM 78 mg/dL (75-110); TOTAL PROTEIN 7.2 g/dL (6.3-8.3)
[2016-12-02] MEDS: (Novolog) Insulin Aspart, Recombinant 100 u/ml 10 ml vial SC SCH ×2 (18:35→22:05)
[2016-12-03] MEDS: (Novolog) Insulin Aspart, Recombinant 100 u/ml 10 ml vial SC SCH ×4 (07:30→21:49)
[2016-12-03] MEDS: Tolterodine 2 mg ER Cap PO SCH (09:47)
[2016-12-03] MEDS: Multiple Vitamins Tab PO SCH (09:49)
[2016-12-03] MEDS: Pantoprazole 40 mg EC Tab PO SCH (09:51)
[2016-12-03] MEDS: Magnesium Hydroxide Susp 30 ml UD PO SCH (09:51)
[2016-12-03] MEDS: Enoxaparin 40 mg Syringe SC SCH (09:54)
[2016-12-03] MEDS: POLYETHYLENE GLYCOL 3350 17 GM/Dose PACKET PO SCH (10:00)
--- NOTE | 2016-12-03 11:17 | US ---
PROCEDURE: Urinary bladder ultrasound HISTORY: POST RESIDUAL URINE ASSESS RETURNTION COMPARISON: None available. TECHNIQUE: Standard protocol for this study/examination. FINDINGS: Urinary bladder assessment: Prevoid volume: 1518 ml Postvoid residual: 506 ml Intrinsic, mural, perivesical abnormalities: None Ureteral jets: Documented bilaterally. Transabdominal prostate volume measurement 16.3 mL. IMPRESSION: Large capacitance bladder, large postvoid residual. No focal abnormalities.
--- NOTE | 2016-12-03 12:50 | CP.PCM.PN ---
Subjective - Date & Time of Evaluation Date of Evaluation: 12/03/16 Time of Evaluation: 08:40 - Subjective Subjective: clinically same Objective - Vital Signs/Intake and Output Vital Signs (last 24 hours): Temp Pulse Resp BP Pulse Ox 98 F 62 20 158/104 H 100 12/03/16 08:15 12/03/16 08:15 12/03/16 08:15 12/03/16 08:15 12/03/16 08:15 - Medications Medications: Current Medications Acetaminophen (Tylenol 325mg Tab) 650 mg PO Q4 PRN PRN Reason: PAIN MILD Benztropine Mesylate (Cogentin) 2 mg PO DAILY [facility] Last Admin: 12/03/16 09:45 Dose: 2 mg Celecoxib (Celebrex) 200 mg PO DAILY [facility] Last Admin: 12/02/16 09:25 Dose: 200 mg Dexamethasone (Decadron) 4 mg PO Q6 [facility] Last Admin: 12/03/16 07:30 Dose: 4 mg Enoxaparin Sodium (Lovenox) 40 mg SC DAILY [facility] Last Admin: 12/03/16 09:54 Dose: 40 mg Ergocalciferol (Drisdol 50,000 Intl Units Cap) 1 cap PO QWK [facility] Last Admin: 12/02/16 09:25 Dose: 1 cap Famotidine (Pepcid) 20 mg PO BID [facility] Last Admin: 12/03/16 09:46 Dose: 20 mg Fluoxetine HCl (Prozac) 20 mg PO DAILY [facility] Last Admin: 12/03/16 09:48 Dose: 20 mg Insulin Aspart (Novolog) 0 unit SC ACHS [facility] PRN Reason: Protocol Stop: 12/04/16 00:00 Last Admin: 12/03/16 07:30 Dose: Not Given Lactulose (Enulose) 20 gm PO HS [facility] Last Admin: 12/02/16 22:18 Dose: 20 gm Magnesium Hydroxide (Milk Of Magnesia) 30 ml PO DAILY [facility] Last Admin: 12/03/16 09:51 Dose: 30 ml Metformin HCl (Glucophage) 500 mg PO BIDCC [facility] Last Admin: 12/01/16 16:38 Dose: 500 mg Multivitamins (Hexavitamin) 1 tab PO DAILY [facility] Last Admin: 12/03/16 09:49 Dose: 1 tab Olanzapine (Zyprexa) 5 mg PO DAILY [facility] Last Admin: 12/03/16 09:47 Dose: 5 mg Pantoprazole Sodium (Protonix Ec Tab) 40 mg PO DAILY [facility] Last Admin: 12/03/16 09:51 Dose: 40 mg Polyethylene Glycol (Miralax) 17 gm PO DAILY [facility] Last Admin: 12/02/16 11:44 Dose: 17 gm Thiamine HCl (Vitamin B1 Tab) 100 mg PO DAILY [facility] Last Admin: 12/03/16 09:50 Dose: 100 mg Tolterodine Tartrate (Detrol La) 2 mg PO DAILY [facility] Last Admin: 12/03/16 09:47 Dose: 2 mg - Labs Labs: 12/02/16 15:57 12/02/16 15:57 - Constitutional Appears: Well - Head Exam Head Exam: ATRAUMATIC, NORMAL INSPECTION, NORMOCEPHALIC - Eye Exam Eye Exam: EOMI, Normal appearance, PERRL Pupil Exam: NORMAL ACCOMODATION, PERRL - ENT Exam ENT Exam: Mucous Membranes Moist, Normal Exam - Neck Exam Neck Exam: Full ROM, Normal Inspection. absent: Lymphadenopathy - Respiratory Exam Respiratory Exam: Decreased Breath Sounds - Cardiovascular Exam Cardiovascular Exam: REGULAR RHYTHM, +S1, +S2 - GI/Abdominal Exam GI & Abdominal Exam: Soft, Diminished Bowel Sounds - Rectal Exam Rectal Exam: Deferred
--- NOTE | 2016-12-03 13:13 | CP.PCM.PN ---
Subjective - Date & Time of Evaluation Date of Evaluation: 12/03/16 Time of Evaluation: 13:10 - Subjective Subjective: full consult dictated will need c4/5 discectomy = cord decompression and fusion d/w Pt is agreeable has been on ASA,celebrex and lovenox thus will have to schedule in 4-5 days Objective - Vital Signs/Intake and Output Vital Signs (last 24 hours): Temp Pulse Resp BP Pulse Ox 98 F 62 20 158/104 H 100 12/03/16 08:15 12/03/16 08:15 12/03/16 08:15 12/03/16 08:15 12/03/16 08:15 - Medications Medications: Current Medications Acetaminophen (Tylenol 325mg Tab) 650 mg PO Q4 PRN PRN Reason: PAIN MILD Benztropine Mesylate (Cogentin) 2 mg PO DAILY [facility] Last Admin: 12/03/16 09:45 Dose: 2 mg Dexamethasone (Decadron) 4 mg PO Q6 [facility] Last Admin: 12/03/16 12:56 Dose: 4 mg Enoxaparin Sodium (Lovenox) 40 mg SC DAILY [facility] Last Admin: 12/03/16 09:54 Dose: 40 mg Ergocalciferol (Drisdol 50,000 Intl Units Cap) 1 cap PO QWK [facility] Last Admin: 12/02/16 09:25 Dose: 1 cap Famotidine (Pepcid) 20 mg PO BID [facility] Last Admin: 12/03/16 09:46 Dose: 20 mg Fluoxetine HCl (Prozac) 20 mg PO DAILY [facility] Last Admin: 12/03/16 09:48 Dose: 20 mg Insulin Aspart (Novolog) 0 unit SC ACHS [facility] PRN Reason: Protocol Stop: 12/04/16 00:00 Last Admin: 12/03/16 11:30 Dose: Not Given Lactulose (Enulose) 20 gm PO HS [facility] Last Admin: 12/02/16 22:18 Dose: 20 gm Magnesium Hydroxide (Milk Of Magnesia) 30 ml PO DAILY [facility] Last Admin: 12/03/16 09:51 Dose: 30 ml Metformin HCl (Glucophage) 500 mg PO BIDCC [facility] Last Admin: 12/01/16 16:38 Dose: 500 mg Multivitamins (Hexavitamin) 1 tab PO DAILY [facility] Last Admin: 12/03/16 09:49 Dose: 1 tab Olanzapine (Zyprexa) 5 mg PO DAILY [facility] Last Admin: 12/03/16 09:47 Dose: 5 mg Pantoprazole Sodium (Protonix Ec Tab) 40 mg PO DAILY [facility] Last Admin: 12/03/16 09:51 Dose: 40 mg Polyethylene Glycol (Miralax) 17 gm PO DAILY [facility] Last Admin: 12/03/16 10:00 Dose: 17 gm Thiamine HCl (Vitamin B1 Tab) 100 mg PO DAILY [facility] Last Admin: 12/03/16 09:50 Dose: 100 mg Tolterodine Tartrate (Detrol La) 2 mg PO DAILY [facility] Last Admin: 12/03/16 09:47 Dose: 2 mg - Labs Labs: 12/02/16 15:57 12/02/16 15:57
[2016-12-03 13:59] LABS: BASO % 0.5 % (0.0-2.0); EOS # 0.1 K/uL (0.0-0.7); EOS % 1.7 % (0.0-4.0); LYMPH # 0.6 K/uL (1.0-4.3); LYMPH % 14.3 % (20.0-40.0); MEAN CELL VOLUME 92.5 fL (80.0-94.0); MEAN CORPUSCULAR HEMOGLOBIN 31.1 pg (27.0-31.0); MEAN CORPUSCULAR HGB CONC 33.7 g/dL (33.0-37.0); MEAN PLATELET VOLUME 7.2 fL (7.2-11.7); MONO # 0.1 K/uL (0.0-0.8); MONO % 2.3 % (0.0-10.0); RED CELL DISTRIBUTION WIDTH 13.5 % (11.5-14.5); WHITE BLOOD COUNT 3.9 K/uL (4.8-10.8)
[2016-12-03 14:08] LABS: CHLORIDE 100 mmol/L (98-107)
[2016-12-03 14:09] LABS: POTASSIUM 4.4 mmol/L (3.6-5.2); SODIUM 136 mmol/L (132-148)
[2016-12-03 14:11] LABS: ALB/GLOB RATIO 1.1 (1.0-2.1); ALKALINE PHOSPHATASE 50 U/L (38-126); ALT/SGPT 64 U/L (21-72); AST/SGOT 40 U/L (17-59); BILIRUBIN,TOTAL 0.5 mg/dL (0.2-1.3); BLOOD UREA NITROGEN 14 mg/dL (9-20); CALCIUM 8.9 mg/dl (8.6-10.4); CARBON DIOXIDE 26 mmol/L (22-30); GFR AFRICAN-AMERICAN > 60; GLUCOSE,RANDOM 155 mg/dL (75-110)
--- NOTE | 2016-12-03 14:27 | PN ---
DATE: 12/03/2016 NEUROLOGICAL PROBLEM: Cervical myelopathy, presenting with cord compression, manifesting with the le ft more than right quadriparesis with bladder involvement. PHYSICAL EXAMINATION: VITAL SIGNS: Blood pressure 158/104, mean arterial pressure 122, respiratory rate 18, temperature 98 degrees Fahrenheit, pulse rate 62 regular. NEUROLOGIC: The patient is more awake, alert, oriented to person, place, and time. PSYCHIATRIC: No sign of depression. No sign of suicidal ideation. Complaining of left-sided weakne ss arm and leg to compare with his right side. Proximal weakness on both upper extremities is unchan ged to compare with the previous exam. On examination, asymmetric reflexes with Babinski sign noted again. WORKUP: The patient did have a cervical spine MRI which was reported as C4, C5, C6 level disk hernia tion with significant cord compression with myelomalacia noted and acute T2 signal suggestive of some inflammatory sign around the cord secondary to her recent injury to her neck. Pelvic ultrasound shows postvoid residual urine is more than 506 mL, consistent with urinary retentio n. RECOMMENDATIONS: 1. The patient was given steroids as per the order with proton pump inhibitors and sugar should be c ontrolled with sliding scale. 2. Neurosurgery consult also called yesterday. Awaiting for the recommendation for possible decompr ession. 3. The patient should be kept on bedrest with DVT prophylaxis, and the current medication should be continued. The patient will be followed closely with you. Erlin Armstrong MD cc: [id number] TT: 12/03/2016 14:26:07 Confirmation # [id number] Dictation # [id number]
--- NOTE | 2016-12-03 23:02 | CON ---
DATE: 12/03/2016 HISTORY OF PRESENT ILLNESS: This is a 66-year-old gentleman, who has been having what he states is 3 or 4 weeks of progressive numbness and dysesthesias, incoordination involving predominantly his hand . He has also had some gait problems as well. He was admitted and worked up and found to have a cer vical disk herniation with spinal cord compression. Interviewing him today, those are particularly his symptoms. He actually denies any overt true weakn ess. History is, again, as above. PAST MEDICAL HISTORY: Significant for diabetes. He has got a history of tremors, multiple other med ical problems documented in the EMR. MEDICATIONS: Are extensive. Salient fact is that he has been on aspirin up until yesterday, Celebre x through today, and is on Lovenox. PHYSICAL EXAMINATION: The patient does demonstrate 5/5 strength in the 4 extremities. His proprioce ption is actually quite good. Gross sensation is intact. Again, subjective hand dysesthesias. Refl exes are increased throughout. Plantars are mute bilaterally. Petty's negative bilaterally. Gait was not tested. MRI of the cervical spine documented a fairly impressive disk herniation at the C4-5 level with marke d cord compression. IMPRESSION AND PLAN: I spoke with the patient and indicated to him that unequivocally I would recomm end anterior diskectomy, spinal cord decompression, fixation and fusion at C4-5. We discussed the na ture of the procedure, the rationale behind it, the details, potential risks, and complications, bell ce of success. He is quite agreeable to proceed. However, as he has been on all the above-reference d antiplatelet agents, we really need to hold off on surgery for at least 3-4 days (ideally it would be a week, but he is obviously having significant neurological issues). We would appreciate if he could be cleared medically, and we will plan on performing the operation to wards the end of the week. Rashid Rhodes MD cc: [id number] TT: 12/03/2016 23:02:08 Confirmation # [id number] Dictation # [id number] tn
[2016-12-04] MEDS: Multiple Vitamins Tab PO SCH (10:32)
[2016-12-04] MEDS: Pantoprazole 40 mg EC Tab PO SCH (10:32)
[2016-12-04] MEDS: Magnesium Hydroxide Susp 30 ml UD PO SCH (10:33)
[2016-12-04] MEDS: Enoxaparin 40 mg Syringe SC SCH (10:33)
[2016-12-04] MEDS: POLYETHYLENE GLYCOL 3350 17 GM/Dose PACKET PO SCH (10:33)
[2016-12-04] MEDS: Tolterodine 2 mg ER Cap PO SCH (10:34)
[2016-12-04 14:32] LABS: MONO # 0.7 K/uL (0.0-0.8)
[2016-12-04 14:39] LABS: INR 1.1
[2016-12-04 14:42] LABS: CHLORIDE 97 mmol/L (98-107)
[2016-12-04 14:43] LABS: POTASSIUM 4.2 mmol/L (3.6-5.2); SODIUM 135 mmol/L (132-148)
[2016-12-04 14:45] LABS: ALB/GLOB RATIO 1.1 (1.0-2.1); AST/SGOT 42 U/L (17-59); BILIRUBIN,TOTAL 0.3 mg/dL (0.2-1.3); BLOOD UREA NITROGEN 13 mg/dL (9-20); CARBON DIOXIDE 28 mmol/L (22-30); GFR AFRICAN-AMERICAN > 60; TOTAL PROTEIN 7.2 g/dL (6.3-8.3)
[2016-12-04 14:46] LABS: ALKALINE PHOSPHATASE 57 U/L (38-126); ALT/SGPT 67 U/L (21-72); CALCIUM 9.4 mg/dl (8.6-10.4); GLUCOSE,RANDOM 172 mg/dL (75-110)
[2016-12-04 14:52] LABS: BASO % 0.1 % (0.0-2.0); HEMATOCRIT 39.2 % (35.0-51.0); MEAN CELL VOLUME 92.3 fL (80.0-94.0); MEAN CORPUSCULAR HEMOGLOBIN 30.7 pg (27.0-31.0); MEAN CORPUSCULAR HGB CONC 33.3 g/dL (33.0-37.0); MEAN PLATELET VOLUME 8.1 fL (7.2-11.7); MONO % 4.9 % (0.0-10.0); PLATELET COUNT 229 K/uL (130-400); RED CELL DISTRIBUTION WIDTH 13.4 % (11.5-14.5)
[2016-12-04 14:53] LABS: WHITE BLOOD COUNT 13.8 K/uL (4.8-10.8)
[2016-12-04 15:23] LABS: NEUTROPHIL 90 % (50-75); TOTAL CELLS COUNTED 100
--- NOTE | 2016-12-04 18:09 | CP.PCM.PN ---
Subjective - Date & Time of Evaluation Date of Evaluation: 12/04/16 Time of Evaluation: 08:20 - Subjective Subjective: clinically same Objective - Vital Signs/Intake and Output Vital Signs (last 24 hours): Temp Pulse Resp BP Pulse Ox 98.6 F 65 20 175/96 H 98 12/04/16 16:00 12/04/16 16:00 12/04/16 16:00 12/04/16 16:00 12/04/16 16:00 Intake and Output: 12/04/16 12/04/16 06:59 18:59 Intake Total 400 600 Output Total 600 1900 Balance -200 -1300 - Medications Medications: Current Medications Acetaminophen (Tylenol 325mg Tab) 650 mg PO Q4 PRN PRN Reason: PAIN MILD Benztropine Mesylate (Cogentin) 2 mg PO DAILY [facility] Last Admin: 12/04/16 10:34 Dose: 2 mg Dexamethasone (Decadron) 4 mg PO Q6 [facility] Last Admin: 12/04/16 17:12 Dose: 4 mg Enoxaparin Sodium (Lovenox) 40 mg SC DAILY [facility] Last Admin: 12/04/16 10:33 Dose: 40 mg Ergocalciferol (Drisdol 50,000 Intl Units Cap) 1 cap PO QWK [facility] Last Admin: 12/02/16 09:25 Dose: 1 cap Famotidine (Pepcid) 20 mg PO BID [facility] Last Admin: 12/04/16 17:12 Dose: 20 mg Fluoxetine HCl (Prozac) 20 mg PO DAILY [facility] Last Admin: 12/04/16 10:34 Dose: 20 mg Lactulose (Enulose) 20 gm PO HS [facility] Last Admin: 12/03/16 21:48 Dose: 20 gm Magnesium Hydroxide (Milk Of Magnesia) 30 ml PO DAILY [facility] Last Admin: 12/04/16 10:33 Dose: 30 ml Metformin HCl (Glucophage) 500 mg PO BIDCC [facility] Last Admin: 12/01/16 16:38 Dose: 500 mg Multivitamins (Hexavitamin) 1 tab PO DAILY [facility] Last Admin: 12/04/16 10:32 Dose: 1 tab Olanzapine (Zyprexa) 5 mg PO DAILY [facility] Last Admin: 12/04/16 10:34 Dose: 5 mg Pantoprazole Sodium (Protonix Ec Tab) 40 mg PO DAILY [facility] Last Admin: 12/04/16 10:32 Dose: 40 mg Polyethylene Glycol (Miralax) 17 gm PO DAILY [facility] Last Admin: 12/04/16 10:33 Dose: 17 gm Thiamine HCl (Vitamin B1 Tab) 100 mg PO DAILY [facility] Last Admin: 12/04/16 10:32 Dose: 100 mg Tolterodine Tartrate (Detrol La) 2 mg PO DAILY [facility] Last Admin: 12/04/16 10:34 Dose: 2 mg - Labs Labs: 12/04/16 14:25 12/04/16 14:25 PT 12.0 SECONDS (9.7-12.2) 12/04/16 14:25 INR 1.1 12/04/16 14:25 APTT 34 SECONDS (21-34) 12/04/16 14:25 - Constitutional Appears: Well - Head Exam Head Exam: ATRAUMATIC, NORMAL INSPECTION, NORMOCEPHALIC - Eye Exam Eye Exam: EOMI, Normal appearance, PERRL Pupil Exam: NORMAL ACCOMODATION, PERRL - ENT Exam ENT Exam: Mucous Membranes Moist, Normal Exam - Neck Exam Neck Exam: Full ROM, Normal Inspection. absent: Lymphadenopathy - Respiratory Exam Respiratory Exam: Decreased Breath Sounds - Cardiovascular Exam Cardiovascular Exam: REGULAR RHYTHM, +S1, +S2 - GI/Abdominal Exam GI & Abdominal Exam: Soft, Diminished Bowel Sounds - Rectal Exam Rectal Exam: Deferred
--- NOTE | 2016-12-05 07:44 | PN ---
DATE: 12/05/2016 NEUROLOGICAL PROBLEM: Cervical myelopathy secondary to herniated disk, degenerative disease with cho rdae paresis. PHYSICAL EXAMINATION: VITAL SIGNS: Blood pressure 174/95, mean arterial pressure 121, respirations 16, temperature is 98.3 with a pulse rate 60 regular. NEUROLOGIC: The patient is more awake, alert, oriented to person, place, and time. The patient pres enting with bilateral proximal weakness of the left upper extremity and hyperreflexia of both lower e xtremities with Babinski sign. Neurosurgery consultation is appreciated. The patient is scheduled to have surgery on Sunday because of intake of antiplatelets. Antiplatelets have been off since Sunday. The patient is scheduled to have a decompression surgery on coming Sunday. The patient knows the pros and cons of surgical intervention. ADDENDUM: Please stabilize his blood pressure to keep the mean arterial pressure around 100. Erlin Armstrong MD cc: [id number] TT: 12/05/2016 07:44:07 Confirmation # [id number] Dictation # [id number]
[2016-12-05 08:16] LABS: BASO % 0.2 % (0.0-2.0); MEAN CORPUSCULAR HEMOGLOBIN 31.3 pg (27.0-31.0); MEAN PLATELET VOLUME 7.9 fL (7.2-11.7); MONO # 0.5 K/uL (0.0-0.8); MONO % 3.2 % (0.0-10.0); PLATELET COUNT 240 K/uL (130-400); RED CELL DISTRIBUTION WIDTH 13.1 % (11.5-14.5); WHITE BLOOD COUNT 14.2 K/uL (4.8-10.8)
[2016-12-05 08:25] LABS: CHLORIDE 99 mmol/L (98-107); POTASSIUM 4.1 mmol/L (3.6-5.2); SODIUM 137 mmol/L (132-148)
[2016-12-05 08:27] LABS: AST/SGOT 76 U/L (17-59); BILIRUBIN,TOTAL 0.4 mg/dL (0.2-1.3); CARBON DIOXIDE 27 mmol/L (22-30); GFR AFRICAN-AMERICAN > 60
[2016-12-05 08:28] LABS: ALB/GLOB RATIO 1.1 (1.0-2.1); ALKALINE PHOSPHATASE 55 U/L (38-126); ALT/SGPT 98 U/L (21-72); BLOOD UREA NITROGEN 15 mg/dL (9-20); CALCIUM 9.3 mg/dl (8.6-10.4); GLUCOSE,RANDOM 137 mg/dL (75-110); TOTAL PROTEIN 7.3 g/dL (6.3-8.3)
[2016-12-05 08:38] LABS: NEUTROPHIL 90 % (50-75); TOTAL CELLS COUNTED 100
[2016-12-05] MEDS: POLYETHYLENE GLYCOL 3350 17 GM/Dose PACKET PO SCH (10:14)
[2016-12-05] MEDS: Tolterodine 2 mg ER Cap PO SCH (10:14)
[2016-12-05] MEDS: Enoxaparin 40 mg Syringe SC SCH (10:15)
[2016-12-05] MEDS: Pantoprazole 40 mg EC Tab PO SCH (10:16)
[2016-12-05] MEDS: Multiple Vitamins Tab PO SCH (10:16)
[2016-12-05] MEDS: Magnesium Hydroxide Susp 30 ml UD PO SCH (10:16)
--- NOTE | 2016-12-05 15:31 | CP.PCM.PN ---
Subjective - Date & Time of Evaluation Date of Evaluation: 12/05/16 Time of Evaluation: 08:20 - Subjective Subjective: clinically same Objective - Vital Signs/Intake and Output Vital Signs (last 24 hours): Temp Pulse Resp BP Pulse Ox 97.4 F L 69 20 166/97 H 98 12/05/16 08:11 12/05/16 08:11 12/05/16 08:11 12/05/16 08:11 12/05/16 08:11 Intake and Output: 12/05/16 12/05/16 06:59 18:59 Intake Total 120 Output Total 1900 700 Balance -1780 -700 - Medications Medications: Current Medications Acetaminophen (Tylenol 325mg Tab) 650 mg PO Q4 PRN PRN Reason: PAIN MILD Benztropine Mesylate (Cogentin) 2 mg PO DAILY [facility] Last Admin: 12/05/16 10:14 Dose: 2 mg Dexamethasone (Decadron) 4 mg PO Q6 [facility] Last Admin: 12/05/16 12:50 Dose: 4 mg Enoxaparin Sodium (Lovenox) 40 mg SC DAILY [facility] Last Admin: 12/05/16 10:15 Dose: 40 mg Ergocalciferol (Drisdol 50,000 Intl Units Cap) 1 cap PO QWK [facility] Last Admin: 12/02/16 09:25 Dose: 1 cap Famotidine (Pepcid) 20 mg PO BID [facility] Last Admin: 12/05/16 10:16 Dose: 20 mg Fluoxetine HCl (Prozac) 20 mg PO DAILY [facility] Last Admin: 12/05/16 10:14 Dose: 20 mg Lactulose (Enulose) 20 gm PO HS [facility] Last Admin: 12/04/16 22:03 Dose: 20 gm Magnesium Hydroxide (Milk Of Magnesia) 30 ml PO DAILY [facility] Last Admin: 12/05/16 10:16 Dose: 30 ml Metformin HCl (Glucophage) 500 mg PO BIDCC [facility] Last Admin: 12/01/16 16:38 Dose: 500 mg Multivitamins (Hexavitamin) 1 tab PO DAILY [facility] Last Admin: 12/05/16 10:16 Dose: 1 tab Olanzapine (Zyprexa) 5 mg PO DAILY [facility] Last Admin: 12/05/16 10:14 Dose: 5 mg Pantoprazole Sodium (Protonix Ec Tab) 40 mg PO DAILY [facility] Last Admin: 12/05/16 10:16 Dose: 40 mg Polyethylene Glycol (Miralax) 17 gm PO DAILY [facility] Last Admin: 12/05/16 10:14 Dose: 17 gm Thiamine HCl (Vitamin B1 Tab) 100 mg PO DAILY [facility] Last Admin: 12/05/16 10:16 Dose: 100 mg Tolterodine Tartrate (Detrol La) 2 mg PO DAILY [facility] Last Admin: 12/05/16 10:14 Dose: 2 mg - Labs Labs: 12/05/16 08:07 12/05/16 08:07 PT 12.0 SECONDS (9.7-12.2) 12/04/16 14:25 INR 1.1 12/04/16 14:25 APTT 34 SECONDS (21-34) 12/04/16 14:25 - Constitutional Appears: Well - Head Exam Head Exam: ATRAUMATIC, NORMAL INSPECTION, NORMOCEPHALIC - Eye Exam Eye Exam: EOMI, Normal appearance, PERRL Pupil Exam: NORMAL ACCOMODATION, PERRL - ENT Exam ENT Exam: Mucous Membranes Moist, Normal Exam - Neck Exam Neck Exam: Full ROM, Normal Inspection. absent: Lymphadenopathy - Respiratory Exam Respiratory Exam: Decreased Breath Sounds - Cardiovascular Exam Cardiovascular Exam: REGULAR RHYTHM, +S1, +S2 - GI/Abdominal Exam GI & Abdominal Exam: Soft, Diminished Bowel Sounds - Rectal Exam Rectal Exam: Deferred
[2016-12-06] MEDS: Tolterodine 2 mg ER Cap PO SCH (10:54)
[2016-12-06] MEDS: POLYETHYLENE GLYCOL 3350 17 GM/Dose PACKET PO SCH (10:54)
[2016-12-06] MEDS: Pantoprazole 40 mg EC Tab PO SCH (10:55)
[2016-12-06] MEDS: Enoxaparin 40 mg Syringe SC SCH (10:55)
[2016-12-06] MEDS: Multiple Vitamins Tab PO SCH (10:56)
[2016-12-06] MEDS: (Novolog) Insulin Aspart, Recombinant 100 u/ml 10 ml vial SC SCH ×4 (10:57→21:46)
[2016-12-06] MEDS: Magnesium Hydroxide Susp 30 ml UD PO SCH (11:07)
--- NOTE | 2016-12-06 11:26 | CP.PCM.PN ---
Subjective - Date & Time of Evaluation Date of Evaluation: 12/06/16 Time of Evaluation: 07:40 - Subjective Subjective: clinically same Objective - Vital Signs/Intake and Output Vital Signs (last 24 hours): Temp Pulse Resp BP Pulse Ox 98.2 F 77 20 167/110 H 97 12/06/16 08:16 12/06/16 08:16 12/06/16 08:16 12/06/16 08:16 12/06/16 08:16 Intake and Output: 12/06/16 12/06/16 06:59 18:59 Intake Total 500 Output Total 1750 Balance -1250 - Medications Medications: Current Medications Acetaminophen (Tylenol 325mg Tab) 650 mg PO Q4 PRN PRN Reason: PAIN MILD Benztropine Mesylate (Cogentin) 2 mg PO DAILY [facility] Last Admin: 12/06/16 10:54 Dose: 2 mg Dexamethasone (Decadron) 4 mg PO Q6 [facility] Last Admin: 12/06/16 05:53 Dose: 4 mg Enoxaparin Sodium (Lovenox) 40 mg SC DAILY [facility] Last Admin: 12/06/16 10:55 Dose: 40 mg Ergocalciferol (Drisdol 50,000 Intl Units Cap) 1 cap PO QWK [facility] Last Admin: 12/02/16 09:25 Dose: 1 cap Famotidine (Pepcid) 20 mg PO BID [facility] Last Admin: 12/06/16 10:56 Dose: 20 mg Fluoxetine HCl (Prozac) 20 mg PO DAILY [facility] Last Admin: 12/06/16 10:54 Dose: 20 mg Insulin Aspart (Novolog) 0 unit SC ACHS [facility] PRN Reason: Protocol Last Admin: 12/06/16 10:57 Dose: 1 unit Lactulose (Enulose) 20 gm PO HS [facility] Last Admin: 12/05/16 22:08 Dose: 20 gm Magnesium Hydroxide (Milk Of Magnesia) 30 ml PO DAILY [facility] Last Admin: 12/06/16 11:07 Dose: 30 ml Metformin HCl (Glucophage) 500 mg PO BIDCC [facility] Last Admin: 12/06/16 10:56 Dose: 500 mg Metformin HCl (Glucophage) 500 mg PO BIDCC [facility] Multivitamins (Hexavitamin) 1 tab PO DAILY [facility] Last Admin: 12/06/16 10:56 Dose: 1 tab Olanzapine (Zyprexa) 5 mg PO DAILY [facility] Last Admin: 12/06/16 10:54 Dose: 5 mg Pantoprazole Sodium (Protonix Ec Tab) 40 mg PO DAILY [facility] Last Admin: 12/06/16 10:55 Dose: 40 mg Polyethylene Glycol (Miralax) 17 gm PO DAILY [facility] Last Admin: 12/06/16 10:54 Dose: 17 gm Thiamine HCl (Vitamin B1 Tab) 100 mg PO DAILY [facility] Last Admin: 12/06/16 10:56 Dose: 100 mg Tolterodine Tartrate (Detrol La) 2 mg PO DAILY [facility] Last Admin: 12/06/16 10:54 Dose: 2 mg - Labs Labs: 12/05/16 08:07 12/05/16 08:07 PT 12.0 SECONDS (9.7-12.2) 12/04/16 14:25 INR 1.1 12/04/16 14:25 APTT 34 SECONDS (21-34) 12/04/16 14:25 - Constitutional Appears: Well - Head Exam Head Exam: ATRAUMATIC, NORMAL INSPECTION, NORMOCEPHALIC - Eye Exam Eye Exam: EOMI, Normal appearance, PERRL Pupil Exam: NORMAL ACCOMODATION, PERRL - ENT Exam ENT Exam: Mucous Membranes Moist, Normal Exam - Neck Exam Neck Exam: Full ROM, Normal Inspection. absent: Lymphadenopathy - Respiratory Exam Respiratory Exam: Decreased Breath Sounds - Cardiovascular Exam Cardiovascular Exam: REGULAR RHYTHM, +S1, +S2 - GI/Abdominal Exam GI & Abdominal Exam: Soft, Diminished Bowel Sounds - Rectal Exam Rectal Exam: Deferred
--- NOTE | 2016-12-06 15:55 | CT ---
PROCEDURE: CT HEAD WITHOUT CONTRAST. HISTORY: L SIDE WEAKNESS COMPARISON: None available. TECHNIQUE: Axial computed tomography images were obtained through the head/brain without intravenous contrast. Radiation dose: Total exam DLP = 1044.17 mGy-cm. This CT exam was performed using one or more of the following dose reduction techniques: Automated exposure control, adjustment of the mA and/or kV according to patient size, and/or use of iterative reconstruction technique. FINDINGS: HEMORRHAGE: No intracranial hemorrhage. BRAIN: No mass effect or edema. Bilateral basal ganglia calcifications. Scattered periventricular and subcortical white matter hypodensities, which are nonspecific, but often seen with chronic microvascular ischemic disease. Please note that MRI with diffusion imaging is more sensitive in the detection of acute ischemic event. VENTRICLES: No hydrocephalus. CALVARIUM: Unremarkable. PARANASAL SINUSES: Unremarkable as visualized. No significant inflammatory changes. MASTOID AIR CELLS: Unremarkable as visualized. No inflammatory changes. OTHER FINDINGS: The right temporomandibular joint is displaced anterior inferiorly. IMPRESSION: Nonspecific white matter changes. Please note that MRI with diffusion imaging is more sensitive in the detection of acute ischemic event. The right temporomandibular joint is displaced anterior inferiorly. Age indeterminate. Correlate clinically.
--- NOTE | 2016-12-06 19:05 | US ---
HISTORY: ABD DISTENTION COMPARISON: CT abdomen and pelvis with contrast performed 12/01/16 TECHNIQUE: Sonographic evaluation of the abdomen. FINDINGS: LIVER: Measures 20.6 cm in sagittal dimension. Echogenic liver may be seen in setting of hepatic parenchymal disease or fatty infiltration. 1.5 x 1.3 x 1.6 cm hypoechoic avascular lesion, likely cyst. The main portal vein appears patent with normal directional flow. No intrahepatic bile duct dilatation. GALLBLADDER: No gallstones. No gallbladder wall thickening. Negative sonographic Hugo's sign as assessed by the trauma program manager. COMMON BILE DUCT: Measures 3 mm. PANCREAS: Not well visualized. RIGHT KIDNEY: Measures 11.5 x 3.8 x 4.8 cm. No obstructing calculus or hydronephrosis identified. LEFT KIDNEY: Measures 11.5 x 6.6 x 4.8 cm. No obstructing calculus or hydronephrosis identified. 2.7 x 2.4 x 2.5 cm hypoechoic avascular lesion compatible with a cyst. SPLEEN: Measures approximately 6.6 x 3.3 x 1.6 cm. AORTA: Limited views appear unremarkable. IVC: Limited views appear unremarkable. OTHER FINDINGS: None. IMPRESSION: Hepatomegaly. Echogenic liver may be seen in setting of hepatic parenchymal disease or fatty infiltration. 1.6 cm probable right hepatic lobe cyst. 2.7 cm left renal cyst.
--- NOTE | 2016-12-06 20:53 | CARD ---
APPROVED REPORT EKG Measurement Heart [id number] [place] [id number] <Conclusion> Normal sinus rhythm Normal ECG
--- NOTE | 2016-12-07 07:27 | PN ---
DATE: 12/07/2016 Events have been noted. NEUROLOGICAL PROBLEM: Cervical myelopathy, manifesting with quadriparesis involving left side more t moya his right side with bladder dysfunction. PHYSICAL EXAMINATION: Consistent with quadriparesis, left more than his right side with bilateral Ba binski sign. Proximal weakness again noted which is unchanged. The patient is on low dose steroids, off antiplatelets because of his scheduled surgery tomorrow. RECOMMENDATIONS: Continue the present management. Avoid neck flexion and extension. May be benefit ed with a soft collar at this point. The patient does not show any evidence of stroke process. Case has been discussed with the attending as well as a nurse practitioner. The patient will be followed closely with you. Erlin Armstrong MD cc: [id number] TT: 12/07/2016 07:26:28 Confirmation # [id number] Dictation # [id number]
[2016-12-07] MEDS: (Novolog) Insulin Aspart, Recombinant 100 u/ml 10 ml vial SC SCH ×3 (08:23→16:30)
[2016-12-07] MEDS: Pantoprazole 40 mg EC Tab PO SCH (10:11)
[2016-12-07] MEDS: Enoxaparin 40 mg Syringe SC SCH (10:11)
[2016-12-07] MEDS: Multiple Vitamins Tab PO SCH (10:11)
--- NOTE | 2016-12-07 10:12 | CP.PCM.PN ---
Subjective - Date & Time of Evaluation Date of Evaluation: 12/07/16 Time of Evaluation: 07:20 - Subjective Subjective: clinically same Objective - Vital Signs/Intake and Output Vital Signs (last 24 hours): Temp Pulse Resp BP Pulse Ox 98.3 F 76 20 158/93 H 97 12/07/16 07:31 12/07/16 07:31 12/07/16 07:31 12/07/16 07:31 12/07/16 07:31 Intake and Output: 12/07/16 12/07/16 06:59 18:59 Output Total 1000 Balance -1000 - Medications Medications: Current Medications Acetaminophen (Tylenol 325mg Tab) 650 mg PO Q4 PRN PRN Reason: PAIN MILD Benztropine Mesylate (Cogentin) 2 mg PO DAILY [facility] Last Admin: 12/06/16 10:54 Dose: 2 mg Dexamethasone (Decadron) 4 mg PO Q6 [facility] Last Admin: 12/07/16 05:59 Dose: 4 mg Enoxaparin Sodium (Lovenox) 40 mg SC DAILY [facility] Last Admin: 12/06/16 10:55 Dose: 40 mg Ergocalciferol (Drisdol 50,000 Intl Units Cap) 1 cap PO QWK [facility] Last Admin: 12/02/16 09:25 Dose: 1 cap Famotidine (Pepcid) 20 mg PO BID [facility] Last Admin: 12/07/16 10:11 Dose: 20 mg Fluoxetine HCl (Prozac) 20 mg PO DAILY [facility] Last Admin: 12/06/16 10:54 Dose: 20 mg Insulin Aspart (Novolog) 0 unit SC ACHS [facility] PRN Reason: Protocol Last Admin: 12/06/16 21:46 Dose: Not Given Lactulose (Enulose) 20 gm PO HS [facility] Last Admin: 12/06/16 21:35 Dose: 20 gm Magnesium Hydroxide (Milk Of Magnesia) 30 ml PO DAILY [facility] Last Admin: 12/06/16 11:07 Dose: 30 ml Metformin HCl (Glucophage) 500 mg PO BIDCC [facility] Last Admin: 12/07/16 08:35 Dose: 500 mg Metformin HCl (Glucophage) 500 mg PO BIDCC [facility] Last Admin: 12/06/16 21:36 Dose: Not Given Multivitamins (Hexavitamin) 1 tab PO DAILY [facility] Last Admin: 12/07/16 10:11 Dose: 1 tab Olanzapine (Zyprexa) 5 mg PO DAILY [facility] Last Admin: 12/06/16 10:54 Dose: 5 mg Pantoprazole Sodium (Protonix Ec Tab) 40 mg PO DAILY [facility] Last Admin: 12/07/16 10:11 Dose: 40 mg Polyethylene Glycol (Miralax) 17 gm PO DAILY [facility] Last Admin: 12/06/16 10:54 Dose: 17 gm Thiamine HCl (Vitamin B1 Tab) 100 mg PO DAILY [facility] Last Admin: 12/07/16 10:11 Dose: 100 mg Tolterodine Tartrate (Detrol La) 2 mg PO DAILY [facility] Last Admin: 12/06/16 10:54 Dose: 2 mg - Labs Labs: 12/05/16 08:07 12/05/16 08:07 PT 12.0 SECONDS (9.7-12.2) 12/04/16 14:25 INR 1.1 12/04/16 14:25 APTT 34 SECONDS (21-34) 12/04/16 14:25 - Constitutional Appears: Well - Head Exam Head Exam: ATRAUMATIC, NORMAL INSPECTION, NORMOCEPHALIC - Eye Exam Eye Exam: EOMI, Normal appearance, PERRL Pupil Exam: NORMAL ACCOMODATION, PERRL - ENT Exam ENT Exam: Mucous Membranes Moist, Normal Exam - Neck Exam Neck Exam: Full ROM, Normal Inspection. absent: Lymphadenopathy - Respiratory Exam Respiratory Exam: Decreased Breath Sounds - Cardiovascular Exam Cardiovascular Exam: REGULAR RHYTHM, +S1, +S2 - GI/Abdominal Exam GI & Abdominal Exam: Soft, Diminished Bowel Sounds - Rectal Exam Rectal Exam: Deferred
[2016-12-07] MEDS: Tolterodine 2 mg ER Cap PO SCH (10:13)
[2016-12-07] MEDS: POLYETHYLENE GLYCOL 3350 17 GM/Dose PACKET PO SCH (10:13)
[2016-12-07] MEDS: Magnesium Hydroxide Susp 30 ml UD PO SCH (10:14)
[2016-12-07 13:50] LABS: BASO # 0.1 K/uL (0.0-0.2); BASO % 0.4 % (0.0-2.0); HEMATOCRIT 40.6 % (35.0-51.0); LYMPH # 0.9 K/uL (1.0-4.3); LYMPH % 7.7 % (20.0-40.0); MEAN CELL VOLUME 92.2 fL (80.0-94.0); MEAN CORPUSCULAR HEMOGLOBIN 30.4 pg (27.0-31.0); MEAN CORPUSCULAR HGB CONC 32.9 g/dL (33.0-37.0); MEAN PLATELET VOLUME 7.8 fL (7.2-11.7); MONO # 0.6 K/uL (0.0-0.8); MONO % 5.2 % (0.0-10.0); PLATELET COUNT 268 K/uL (130-400); RED CELL DISTRIBUTION WIDTH 13.3 % (11.5-14.5); WHITE BLOOD COUNT 12.1 K/uL (4.8-10.8)
[2016-12-07 13:57] LABS: CHLORIDE 97 mmol/L (98-107); POTASSIUM 4.1 mmol/L (3.6-5.2); SODIUM 134 mmol/L (132-148)
[2016-12-07 13:59] LABS: BILIRUBIN,TOTAL 0.4 mg/dL (0.2-1.3); GFR AFRICAN-AMERICAN > 60
[2016-12-07 14:00] LABS: ALKALINE PHOSPHATASE 54 U/L (38-126); ALT/SGPT 101 U/L (21-72); AST/SGOT 42 U/L (17-59); BLOOD UREA NITROGEN 18 mg/dL (9-20); CARBON DIOXIDE 27 mmol/L (22-30); GLUCOSE,RANDOM 190 mg/dL (75-110)
[2016-12-07 14:58] LABS: NEUTROPHIL 88 % (50-75); TOTAL CELLS COUNTED 100
--- NOTE | 2016-12-07 17:05 | CP.PCM.PN ---
Subjective - Date & Time of Evaluation Date of Evaluation: 12/07/16 Time of Evaluation: 17:00 - Subjective Subjective: 66 Y/O MALE SEEN AND EXAMINED TODAY BY DR ALANIS CT HEAD SHOWS RIGHT TEMPOMANDIBULAR JOINT DISPLACEMENT - ANTERIOR INFERIOR I SPOKE TO DR GALVAN AND DR BHATT REGARDING CONSULT PT WILL FOLLOW OUTPT WITH [facility]ANDIB[facility] SURGEONS CASE D/W DR ALANIS AND AGREE W/POC Objective - Vital Signs/Intake and Output Vital Signs (last 24 hours): Temp Pulse Resp BP Pulse Ox 97.6 F 78 20 151/91 H 97 12/07/16 16:00 12/07/16 16:00 12/07/16 16:00 12/07/16 16:00 12/07/16 16:00 Intake and Output: 12/07/16 12/07/16 06:59 18:59 Intake Total 1000 Output Total 1000 Balance -1000 1000 - Medications Medications: Current Medications Acetaminophen (Tylenol 325mg Tab) 650 mg PO Q4 PRN PRN Reason: PAIN MILD Benztropine Mesylate (Cogentin) 2 mg PO DAILY [facility] Last Admin: 12/07/16 10:13 Dose: 2 mg Dexamethasone (Decadron) 4 mg PO Q6 [facility] Last Admin: 12/07/16 12:02 Dose: 4 mg Enoxaparin Sodium (Lovenox) 40 mg SC DAILY [facility] Last Admin: 12/07/16 10:11 Dose: 40 mg Ergocalciferol (Drisdol 50,000 Intl Units Cap) 1 cap PO QWK [facility] Last Admin: 12/02/16 09:25 Dose: 1 cap Famotidine (Pepcid) 20 mg PO BID [facility] Last Admin: 12/07/16 10:11 Dose: 20 mg Fluoxetine HCl (Prozac) 20 mg PO DAILY [facility] Last Admin: 12/07/16 10:14 Dose: 20 mg Insulin Aspart (Novolog) 0 unit SC ACHS [facility] PRN Reason: Protocol Last Admin: 12/07/16 11:54 Dose: 1 unit Lactulose (Enulose) 20 gm PO HS [facility] Last Admin: 12/06/16 21:35 Dose: 20 gm Magnesium Hydroxide (Milk Of Magnesia) 30 ml PO DAILY [facility] Last Admin: 12/07/16 10:14 Dose: 30 ml Metformin HCl (Glucophage) 500 mg PO BIDCC [facility] Last Admin: 12/07/16 16:46 Dose: 500 mg Multivitamins (Hexavitamin) 1 tab PO DAILY [facility] Last Admin: 12/07/16 10:11 Dose: 1 tab Olanzapine (Zyprexa) 5 mg PO DAILY [facility] Last Admin: 12/07/16 10:13 Dose: 5 mg Pantoprazole Sodium (Protonix Ec Tab) 40 mg PO DAILY [facility] Last Admin: 12/07/16 10:11 Dose: 40 mg Polyethylene Glycol (Miralax) 17 gm PO DAILY [facility] Last Admin: 12/07/16 10:13 Dose: 17 gm Thiamine HCl (Vitamin B1 Tab) 100 mg PO DAILY [facility] Last Admin: 12/07/16 10:11 Dose: 100 mg Tolterodine Tartrate (Detrol La) 2 mg PO DAILY [facility] Last Admin: 12/07/16 10:13 Dose: 2 mg - Labs Labs: 12/07/16 13:44 12/07/16 13:44 PT 12.0 SECONDS (9.7-12.2) 12/04/16 14:25 INR 1.1 12/04/16 14:25 APTT 34 SECONDS (21-34) 12/04/16 14:25
[2016-12-08] MEDS ORDERED: Absorbable Gelatin Sponge Size 100 ONE (07:59)
[2016-12-08] MEDS ORDERED: Lidocaine 1% w Epi 1:100,000 Inj ONE (07:59)
[2016-12-08] MEDS ORDERED: Bacitracin Ointment 30 GM TUBE ONE (08:00)
[2016-12-08] MEDS ORDERED: Thrombin Topical 5,000 IU Spray Kit ONE (08:00)
[2016-12-08] MEDS ORDERED: Bupivacaine HCl 0.5% PF (10 ml) Inj ONE ×2 (08:01)
[2016-12-08] MEDS: (Novolog) Insulin Aspart, Recombinant 100 u/ml 10 ml vial SC SCH ×4 (08:26→21:57)
[2016-12-08] MEDS ORDERED: Lactated Ringer's 1,000 ML IV ONE ×3 (08:36→09:15)
[2016-12-08] MEDS: Bacitracin 50,000 UNIT in Sodium Chloride 0.9% Irrig 1,000 ML IR SCH ×2 (08:37→09:11)
[2016-12-08] MEDS ORDERED: Propofol 10 mg/ml Inj (20 ML) ONE ×2 (08:45→10:54)
[2016-12-08] MEDS ORDERED: Midazolam 2 MG/2 ML VIAL ONE (08:46)
[2016-12-08] MEDS ORDERED: Propofol 10 mg/ml 1,000 MG/100 ML VIAL ONE (08:48)
[2016-12-08] MEDS ORDERED: Remifentanil 1 mg/3 ml Vial IV ONE (08:48)
[2016-12-08] MEDS: ceFAZolin IV 2 gm in Dextrose 1 GM/50 ML BAG IVPB ONE ×2 (09:40→09:45)
[2016-12-08] MEDS: Tolterodine 2 mg ER Cap PO SCH (10:42)
[2016-12-08] MEDS: POLYETHYLENE GLYCOL 3350 17 GM/Dose PACKET PO SCH (10:43)
[2016-12-08] MEDS: Magnesium Hydroxide Susp 30 ml UD PO SCH (10:43)
[2016-12-08] MEDS: Multiple Vitamins Tab PO SCH (10:43)
[2016-12-08] MEDS: Pantoprazole 40 mg EC Tab PO SCH (10:43)
[2016-12-08] MEDS ORDERED: HYDROmorphone 0.5 mg/0.5 ml ISec IVP PRN (10:49)
[2016-12-08] MEDS ORDERED: Labetalol 5 mg/ml Inj 20ML IV ONE (13:03)
--- NOTE | 2016-12-08 13:49 | RAD ---
PROCEDURE: Intraoperative Fluoroscopy. HISTORY: HERNIATED DISC FINDINGS: Fluoroscopic assistance was provided for cervical spine surgery.
--- NOTE | 2016-12-08 14:41 | OP ---
PROCEDURE DATE: 12/08/2016 PREOPERATIVE DIAGNOSES: Herniated cervical disk with spinal cord compression. POSTOPERATIVE DIAGNOSES: Herniated cervical disc with spinal cord compression. PROCEDURE: Anterior cervical diskectomy, fixation and fusion C3-C4. SURGEON: Rashid Rhodes MD COSURGEON: Bhupinder Cho MD ANESTHESIA: General endotracheal. ESTIMATED BLOOD LOSS: 50 mL. COMPLICATIONS: None. JUSTIFICATION: The patient presented with several weeks of problems with his hand coordination, ting ling and numbness in his hands and some difficulty walking. MRI documented significant disk herniati on at C3-C4 with significant cord compression, particularly on the left side. The patient was recomm ended to undergo decompression with fixation and fusion as soon as possible. Unfortunately, the pito ent had been on a combination of aspirin, Celebrex and Lovenox, and we had to delay the procedure for 3-4 days to allow all of these agents to wear off. The nature of the procedure, the rationale behin d it, potential risks and complications, realistic chance of success, recovery time were discussed wi th the patient at length. All his questions were answered. He fully understood and agreed to evette white. DESCRIPTION OF PROCEDURE: The patient was taken to the operating room. He was hooked up to neurophy siological monitoring. He was carefully intubated and anesthetized. He was placed on the OR table i n the supine position. We were careful not to place him in any type of extension. We placed him in a donut with his shoulders gently taped down and his chin very gently brought upwards. Incision loca lized with lateral fluoroscopy just overlying the C3-C4 disk. The patient's entire throat was then scrubbed with acetone scrub, painted and draped in the usual radha rile manner. The incision was then made just to the left of midline, approximately 4 cm in length. The disk was exposed, opened in the direction of its fibers. Sharp and blunt dissection then carried forth in the plane between the sternocleidomastoid and the carotid laterally, the trachea and esopha guerline medially to encounter the anterior spine. This was cleared with Kitner elevators. Needle was th en placed in the exposed disk, which confirmed to be the C3-C4 level. At this point, the longus colli muscles were stripped laterally bilaterally. The self-retaining Casp ar type retracting system was then placed. The anesthesiologist was asked to deflate the ET cuff. This was then incised, grossly emptied of disk material with the use of various curettes and pituitar y rongeurs. This was also done with the assistance of intravertebral retractors. When the gross dis kectomy was completed, the microscope was brought in. Under microscopic vision, we teased out some further disk fragments. We specifically begun on the re latively right side with a retractor on the left. We were able to tease a 1 mm Kerrison behind the posterior longitudinal ligament, thus removing all soft tissue off the anterior dura. A foramin otomy was performed of the exiting nerve roots. Some of the end-plate above and below were removed w ith a 2 mm Kerrison. This completely decompressed the right side. The retractor was then switched o daniela to the left and we began decompression from right to left. We used a 1 mm Kerrison because of th e significant cord compression and we removed significant amounts of free disk material clearly impac ting the cord. This was done until the anterior dura was completely decompressed. Again, we removed some of the end-plate above and below and performed a foraminotomy of the exiting C4 root. A nerve hook was then used to inspect each foramen and inspect behind the upper body of C4, the lower body of C3 and we documented complete decompression. It should be noted that somatosensory evoked potentials remained stable over the decompression as wel l as the entire procedure. Motor evoked potentials, which we attempted to use, were never obtainable . It was believed that this was for technical reasons, but in any case obviously we could not use th em. At this point, we removed the microscope and we began the fusion procedure. The height and depth of the disk space were measured. We harvested some bone marrow from the anterior C4 vertebra by making a small puncture in the cortical bone and aspirating marrow with an 18 gauge needle. This was impreg nated on a collagen hydroxyapatite sponge. We trialled several interbody grafts and chose a 5 mm as being the best with a tight fit without overdistraction. The end-plates above and below were decorti cated. Then a DePuy Bengal carbon fiber fusion cage filled with marrow impregnated sponge was tapped into the interspace until it was well seated and countersunk. This was confirmed both visually and fluoroscopically. At this point, we chose the appropriate sized DePuy anterior titanium locking plate, 16 mm screws wer e sequentially placed through the plate into C3 and C4 under constant lateral fluoroscopy. Final x-r ay actually confirmed excellent position of the entire construct, that is the overlying plate, the 2 intervertebral screws and the interbody graft. The 2 screw head locking mechanisms were then tighten ed. At this point, the wound was copiously irrigated with antibiotic solution. The retracting system was withdrawn. Some small bleeding points were identified primarily along the longus colli muscles and the pharyngeal wall, which were coagulated with bipolar cautery. We performed multiple rounds of irr igation to ensure that there was no bleeding. The wound in general was observed for several minutes prior to closure to ensure hemostasis was complete. Furthermore, a layer of thrombinated powdered Ge lfoam placed in the prevertebral space. At this point, the platysma was reapproximated using interrupted Vicryl, the subQ closed using interr upted inverted 3-0 Vicryl, the skin closed with a running 4-0 Monocryl stitch, benzoin and Steri-Stri ps, a dressing and a collar were applied. The patient was aroused from anesthesia and extubated without difficulty, noted to be moving all [address] to the recovery room. As for preop, he did have a little bit of weakness on the left compared to the right, but he was certainly antigravity and better in all 4 extremities. All c ounts were correct. There were no complications. Rashid Rhodes MD cc: 131 TT: 12/08/2016 14:40:16 en
--- NOTE | 2016-12-08 18:20 | CP.PCM.PN ---
Subjective - Date & Time of Evaluation Date of Evaluation: 12/08/16 Time of Evaluation: 09:20 - Subjective Subjective: clinically same Objective - Vital Signs/Intake and Output Vital Signs (last 24 hours): Temp Pulse Resp BP Pulse Ox 98.7 F 67 200 H 161/93 H 99 12/08/16 15:54 12/08/16 15:54 12/08/16 15:54 12/08/16 15:54 12/08/16 15:54 Intake and Output: 12/08/16 12/08/16 06:59 18:59 Intake Total 300 Output Total 1300 200 Balance -1000 -200 - Medications Medications: Current Medications Acetaminophen (Tylenol 325mg Tab) 650 mg PO Q4 PRN PRN Reason: PAIN MILD Benztropine Mesylate (Cogentin) 2 mg PO DAILY [facility] Last Admin: 12/08/16 10:42 Dose: Not Given Dexamethasone (Decadron) 4 mg PO Q6 [facility] Last Admin: 12/08/16 18:03 Dose: 4 mg Enoxaparin Sodium (Lovenox) 40 mg SC DAILY [facility] Last Admin: 12/07/16 10:11 Dose: 40 mg Ergocalciferol (Drisdol 50,000 Intl Units Cap) 1 cap PO QWK [facility] Last Admin: 12/02/16 09:25 Dose: 1 cap Famotidine (Pepcid) 20 mg PO BID [facility] Last Admin: 12/08/16 18:03 Dose: 20 mg Fluoxetine HCl (Prozac) 20 mg PO DAILY [facility] Last Admin: 12/08/16 10:43 Dose: Not Given Insulin Aspart (Novolog) 0 unit SC ACHS [facility] PRN Reason: Protocol Last Admin: 12/08/16 18:03 Dose: 2 unit Lactulose (Enulose) 20 gm PO HS [facility] Last Admin: 12/07/16 22:08 Dose: 20 gm Magnesium Hydroxide (Milk Of Magnesia) 30 ml PO DAILY [facility] Last Admin: 12/08/16 10:43 Dose: Not Given Metformin HCl (Glucophage) 500 mg PO BIDCC [facility] Last Admin: 12/08/16 18:03 Dose: 500 mg Multivitamins (Hexavitamin) 1 tab PO DAILY [facility] Last Admin: 12/08/16 10:43 Dose: Not Given Olanzapine (Zyprexa) 5 mg PO DAILY [facility] Last Admin: 12/08/16 10:44 Dose: Not Given Pantoprazole Sodium (Protonix Ec Tab) 40 mg PO DAILY [facility] Last Admin: 12/08/16 10:43 Dose: Not Given Polyethylene Glycol (Miralax) 17 gm PO DAILY [facility] Last Admin: 12/08/16 10:43 Dose: Not Given Thiamine HCl (Vitamin B1 Tab) 100 mg PO DAILY [facility] Last Admin: 12/08/16 10:44 Dose: Not Given Tolterodine Tartrate (Detrol La) 2 mg PO DAILY [facility] Last Admin: 12/08/16 10:42 Dose: Not Given - Labs Labs: 12/07/16 13:44 12/07/16 13:44 PT 12.0 SECONDS (9.7-12.2) 12/04/16 14:25 INR 1.1 12/04/16 14:25 APTT 34 SECONDS (21-34) 12/04/16 14:25 - Constitutional Appears: Well - Head Exam Head Exam: ATRAUMATIC, NORMAL INSPECTION, NORMOCEPHALIC - Eye Exam Eye Exam: EOMI, Normal appearance, PERRL Pupil Exam: NORMAL ACCOMODATION, PERRL - ENT Exam ENT Exam: Mucous Membranes Moist, Normal Exam - Neck Exam Neck Exam: Full ROM, Normal Inspection. absent: Lymphadenopathy - Respiratory Exam Respiratory Exam: Decreased Breath Sounds - Cardiovascular Exam Cardiovascular Exam: REGULAR RHYTHM, +S1, +S2 - GI/Abdominal Exam GI & Abdominal Exam: Soft, Diminished Bowel Sounds - Rectal Exam Rectal Exam: Deferred
[2016-12-09] MEDS: (Novolog) Insulin Aspart, Recombinant 100 u/ml 10 ml vial SC SCH ×4 (08:39→21:30)
[2016-12-09] MEDS: Tolterodine 2 mg ER Cap PO SCH (10:00)
[2016-12-09] MEDS: Multiple Vitamins Tab PO SCH (10:00)
[2016-12-09] MEDS: Magnesium Hydroxide Susp 30 ml UD PO SCH (10:00)
[2016-12-09] MEDS: Pantoprazole 40 mg EC Tab PO SCH (10:00)
[2016-12-09] MEDS: POLYETHYLENE GLYCOL 3350 17 GM/Dose PACKET PO SCH (10:00)
[2016-12-09] MEDS: Ergocalciferol 50,000 Intl Units Cap PO SCH (10:01)
--- NOTE | 2016-12-09 11:44 | CP.PCM.PN ---
Subjective - Date & Time of Evaluation Date of Evaluation: 12/09/16 Time of Evaluation: 11:41 - Subjective Subjective: SPINE - POD #1 Pt resting in bed. Seems comfortable. Complains of some pain at surg site. Able to eat breakfast. States his arms feel a little better than pre-op. VSS. Afebrile. Moving all extremities actively. Neuro grossly intact. Plan: Mobilize as tolerated. PT/OT ordered. OK for d/c when medically cleared. Objective - Vital Signs/Intake and Output Vital Signs (last 24 hours): Temp Pulse Resp BP Pulse Ox 98.0 F 69 18 164/93 H 98 12/09/16 04:00 12/09/16 05:40 12/09/16 04:00 12/09/16 05:40 12/09/16 04:00 Intake and Output: 12/09/16 12/09/16 06:59 18:59 Intake Total 320 Output Total 1900 Balance -1580 - Medications Medications: Current Medications Acetaminophen (Tylenol 325mg Tab) 650 mg PO Q4 PRN PRN Reason: PAIN MILD Last Admin: 12/09/16 06:02 Dose: 650 mg Benztropine Mesylate (Cogentin) 2 mg PO DAILY [facility] Last Admin: 12/09/16 10:00 Dose: 2 mg Dexamethasone (Decadron) 4 mg PO Q6 [facility] Last Admin: 12/09/16 06:02 Dose: 4 mg Enoxaparin Sodium (Lovenox) 40 mg SC DAILY [facility] Last Admin: 12/07/16 10:11 Dose: 40 mg Ergocalciferol (Drisdol 50,000 Intl Units Cap) 1 cap PO QWK [facility] Last Admin: 12/09/16 10:01 Dose: 1 cap Famotidine (Pepcid) 20 mg PO BID [facility] Last Admin: 12/09/16 10:00 Dose: 20 mg Fluoxetine HCl (Prozac) 20 mg PO DAILY [facility] Last Admin: 12/09/16 10:00 Dose: 20 mg Insulin Aspart (Novolog) 0 unit SC ACHS [facility] PRN Reason: Protocol Last Admin: 12/09/16 08:39 Dose: 1 unit Lactulose (Enulose) 20 gm PO HS [facility] Last Admin: 12/08/16 22:13 Dose: Not Given Magnesium Hydroxide (Milk Of Magnesia) 30 ml PO DAILY [facility] Last Admin: 12/09/16 10:00 Dose: 30 ml Metformin HCl (Glucophage) 500 mg PO BIDCC [facility] Last Admin: 12/09/16 08:39 Dose: 500 mg Multivitamins (Hexavitamin) 1 tab PO DAILY [facility] Last Admin: 12/09/16 10:00 Dose: 1 tab Olanzapine (Zyprexa) 5 mg PO DAILY [facility] Last Admin: 12/09/16 10:00 Dose: 5 mg Pantoprazole Sodium (Protonix Ec Tab) 40 mg PO DAILY [facility] Last Admin: 12/09/16 10:00 Dose: 40 mg Polyethylene Glycol (Miralax) 17 gm PO DAILY [facility] Last Admin: 12/09/16 10:00 Dose: 17 gm Thiamine HCl (Vitamin B1 Tab) 100 mg PO DAILY [facility] Last Admin: 12/09/16 10:00 Dose: 100 mg Tolterodine Tartrate (Detrol La) 2 mg PO DAILY [facility] Last Admin: 12/09/16 10:00 Dose: 2 mg - Labs Labs: 12/07/16 13:44 12/07/16 13:44 PT 12.0 SECONDS (9.7-12.2) 12/04/16 14:25 INR 1.1 12/04/16 14:25 APTT 34 SECONDS (21-34) 12/04/16 14:25
--- NOTE | 2016-12-09 13:34 | CP.PCM.PN ---
Subjective - Date & Time of Evaluation Date of Evaluation: 12/09/16 Time of Evaluation: 10:40 - Subjective Subjective: clinically same Objective - Vital Signs/Intake and Output Vital Signs (last 24 hours): Temp Pulse Resp BP Pulse Ox 98.0 F 69 18 164/93 H 98 12/09/16 04:00 12/09/16 05:40 12/09/16 04:00 12/09/16 05:40 12/09/16 04:00 Intake and Output: 12/09/16 12/09/16 06:59 18:59 Intake Total 320 Output Total 1900 Balance -1580 - Medications Medications: Current Medications Acetaminophen (Tylenol 325mg Tab) 650 mg PO Q4 PRN PRN Reason: PAIN MILD Last Admin: 12/09/16 06:02 Dose: 650 mg Benztropine Mesylate (Cogentin) 2 mg PO DAILY [facility] Last Admin: 12/09/16 10:00 Dose: 2 mg Dexamethasone (Decadron) 4 mg PO Q6 [facility] Last Admin: 12/09/16 12:21 Dose: 4 mg Enoxaparin Sodium (Lovenox) 40 mg SC DAILY [facility] Last Admin: 12/07/16 10:11 Dose: 40 mg Ergocalciferol (Drisdol 50,000 Intl Units Cap) 1 cap PO QWK [facility] Last Admin: 12/09/16 10:01 Dose: 1 cap Famotidine (Pepcid) 20 mg PO BID [facility] Last Admin: 12/09/16 10:00 Dose: 20 mg Fluoxetine HCl (Prozac) 20 mg PO DAILY [facility] Last Admin: 12/09/16 10:00 Dose: 20 mg Insulin Aspart (Novolog) 0 unit SC ACHS [facility] PRN Reason: Protocol Last Admin: 12/09/16 12:22 Dose: 1 unit Lactulose (Enulose) 20 gm PO HS [facility] Last Admin: 12/08/16 22:13 Dose: Not Given Magnesium Hydroxide (Milk Of Magnesia) 30 ml PO DAILY [facility] Last Admin: 12/09/16 10:00 Dose: 30 ml Metformin HCl (Glucophage) 500 mg PO BIDCC [facility] Last Admin: 12/09/16 08:39 Dose: 500 mg Multivitamins (Hexavitamin) 1 tab PO DAILY [facility] Last Admin: 12/09/16 10:00 Dose: 1 tab Olanzapine (Zyprexa) 5 mg PO DAILY [facility] Last Admin: 12/09/16 10:00 Dose: 5 mg Pantoprazole Sodium (Protonix Ec Tab) 40 mg PO DAILY [facility] Last Admin: 12/09/16 10:00 Dose: 40 mg Polyethylene Glycol (Miralax) 17 gm PO DAILY [facility] Last Admin: 12/09/16 10:00 Dose: 17 gm Thiamine HCl (Vitamin B1 Tab) 100 mg PO DAILY [facility] Last Admin: 12/09/16 10:00 Dose: 100 mg Tolterodine Tartrate (Detrol La) 2 mg PO DAILY [facility] Last Admin: 12/09/16 10:00 Dose: 2 mg - Labs Labs: 12/07/16 13:44 12/07/16 13:44 PT 12.0 SECONDS (9.7-12.2) 12/04/16 14:25 INR 1.1 12/04/16 14:25 APTT 34 SECONDS (21-34) 12/04/16 14:25 - Constitutional Appears: Well - Head Exam Head Exam: ATRAUMATIC, NORMAL INSPECTION, NORMOCEPHALIC - Eye Exam Eye Exam: EOMI, Normal appearance, PERRL Pupil Exam: NORMAL ACCOMODATION, PERRL - ENT Exam ENT Exam: Mucous Membranes Moist, Normal Exam - Neck Exam Neck Exam: Full ROM, Normal Inspection. absent: Lymphadenopathy - Respiratory Exam Respiratory Exam: Decreased Breath Sounds - Cardiovascular Exam Cardiovascular Exam: REGULAR RHYTHM, +S1, +S2 - GI/Abdominal Exam GI & Abdominal Exam: Soft, Diminished Bowel Sounds - Rectal Exam Rectal Exam: Deferred Assessment and Plan (1) Weakness Status: Acute (2) Elevated CK Status: Acute (3) Finger laceration Status: Acute (4) Open finger dislocation Status: Acute (5) Recurrent falls Status: Acute (6) Unsteady gait Status: Acute - Assessment and Plan (Free Text) Plan: able to do surg witout post op complicaton feels litle better dr. lani collier note read juan same pain mx pt ot may need carter will speak to family as ordered labs and med reviewed
[2016-12-09 14:20] LABS: BASO % 0.2 % (0.0-2.0); HEMATOCRIT 40.6 % (35.0-51.0); LYMPH % 7.1 % (20.0-40.0); MEAN CELL VOLUME 92.3 fL (80.0-94.0); MEAN CORPUSCULAR HEMOGLOBIN 31.1 pg (27.0-31.0); MEAN CORPUSCULAR HGB CONC 33.7 g/dL (33.0-37.0); MEAN PLATELET VOLUME 7.7 fL (7.2-11.7); MONO # 1.3 K/uL (0.0-0.8); MONO % 9.3 % (0.0-10.0); NRBC % 0.1 % (0.0-2.0); PLATELET COUNT 262 K/uL (130-400); RED CELL DISTRIBUTION WIDTH 13.3 % (11.5-14.5); WHITE BLOOD COUNT 14.1 K/uL (4.8-10.8)
[2016-12-09 14:30] LABS: CHLORIDE 94 mmol/L (98-107); SODIUM 133 mmol/L (132-148)
[2016-12-09 14:31] LABS: POTASSIUM 3.9 mmol/L (3.6-5.2)
[2016-12-09 14:33] LABS: ALB/GLOB RATIO 1.1 (1.0-2.1); ALKALINE PHOSPHATASE 52 U/L (38-126); ALT/SGPT 69 U/L (21-72); AST/SGOT 27 U/L (17-59); BILIRUBIN,TOTAL 0.5 mg/dL (0.2-1.3); BLOOD UREA NITROGEN 20 mg/dL (9-20); CALCIUM 8.5 mg/dl (8.6-10.4); CARBON DIOXIDE 29 mmol/L (22-30); GFR AFRICAN-AMERICAN > 60; GLUCOSE,RANDOM 174 mg/dL (75-110); TOTAL PROTEIN 6.6 g/dL (6.3-8.3)
[2016-12-09 14:59] LABS: NEUTROPHIL 86 % (50-75); TOTAL CELLS COUNTED 100
[2016-12-10] MEDS: (Novolog) Insulin Aspart, Recombinant 100 u/ml 10 ml vial SC SCH ×4 (08:29→21:44)
[2016-12-10] MEDS: Pantoprazole 40 mg EC Tab PO SCH (09:38)
[2016-12-10] MEDS: Multiple Vitamins Tab PO SCH (09:38)
[2016-12-10] MEDS: Tolterodine 2 mg ER Cap PO SCH (09:38)
[2016-12-10] MEDS: Magnesium Hydroxide Susp 30 ml UD PO SCH (09:39)
[2016-12-10] MEDS: POLYETHYLENE GLYCOL 3350 17 GM/Dose PACKET PO SCH (09:39)
--- NOTE | 2016-12-10 12:07 | CP.PCM.PN ---
Subjective - Date & Time of Evaluation Date of Evaluation: 12/10/16 Objective - Vital Signs/Intake and Output Vital Signs (last 24 hours): Temp Pulse Resp BP Pulse Ox 97.8 F 76 18 159/103 H 97 12/10/16 07:00 12/10/16 07:00 12/10/16 07:00 12/10/16 09:00 12/10/16 07:00 Intake and Output: 12/10/16 12/10/16 06:59 18:59 Intake Total 210 Output Total 3450 Balance -3240 - Medications Medications: Current Medications Acetaminophen (Tylenol 325mg Tab) 650 mg PO Q4 PRN PRN Reason: PAIN MILD Last Admin: 12/10/16 00:10 Dose: 650 mg Amlodipine Besylate (Norvasc) 10 mg PO DAILY [facility] Last Admin: 12/10/16 10:17 Dose: 10 mg Benztropine Mesylate (Cogentin) 2 mg PO DAILY [facility] Last Admin: 12/10/16 09:38 Dose: 2 mg Dexamethasone (Decadron) 4 mg PO Q6 [facility] Last Admin: 12/10/16 05:53 Dose: 4 mg Enoxaparin Sodium (Lovenox) 40 mg SC DAILY [facility] Last Admin: 12/07/16 10:11 Dose: 40 mg Ergocalciferol (Drisdol 50,000 Intl Units Cap) 1 cap PO QWK [facility] Last Admin: 12/09/16 10:01 Dose: 1 cap Famotidine (Pepcid) 20 mg PO BID [facility] Last Admin: 12/10/16 09:38 Dose: 20 mg Fluoxetine HCl (Prozac) 20 mg PO DAILY [facility] Last Admin: 12/10/16 09:38 Dose: 20 mg Insulin Aspart (Novolog) 0 unit SC ACHS [facility] PRN Reason: Protocol Last Admin: 12/10/16 08:29 Dose: 1 unit Lactulose (Enulose) 20 gm PO HS [facility] Last Admin: 12/09/16 21:50 Dose: 20 gm Magnesium Hydroxide (Milk Of Magnesia) 30 ml PO DAILY [facility] Last Admin: 12/10/16 09:39 Dose: 30 ml Metformin HCl (Glucophage) 500 mg PO BIDCC [facility] Last Admin: 12/10/16 08:48 Dose: 500 mg Multivitamins (Hexavitamin) 1 tab PO DAILY [facility] Last Admin: 12/10/16 09:38 Dose: 1 tab Olanzapine (Zyprexa) 5 mg PO DAILY [facility] Last Admin: 12/10/16 09:38 Dose: 5 mg Pantoprazole Sodium (Protonix Ec Tab) 40 mg PO DAILY [facility] Last Admin: 12/10/16 09:38 Dose: 40 mg Polyethylene Glycol (Miralax) 17 gm PO DAILY [facility] Last Admin: 12/10/16 09:39 Dose: 17 gm Thiamine HCl (Vitamin B1 Tab) 100 mg PO DAILY [facility] Last Admin: 12/10/16 09:43 Dose: 100 mg Tolterodine Tartrate (Detrol La) 2 mg PO DAILY [facility] Last Admin: 12/10/16 09:38 Dose: 2 mg - Labs Labs: 12/09/16 14:05 12/09/16 14:05 PT 12.0 SECONDS (9.7-12.2) 12/04/16 14:25 INR 1.1 12/04/16 14:25 APTT 34 SECONDS (21-34) 12/04/16 14:25 Assessment and Plan (1) Weakness Status: Acute (2) Elevated CK Status: Acute (3) Finger laceration Status: Acute (4) Open finger dislocation Status: Acute (5) Recurrent falls Status: Acute (6) Unsteady gait Status: Acute - Assessment and Plan (Free Text) Plan: s/p pod day 2 ptt feels better no new copalints pt remians same followup [facility] neurosur and cassidy gibson meeting
[2016-12-10 14:05] LABS: BASO % 0.3 % (0.0-2.0); EOS % 0.1 % (0.0-4.0); HEMATOCRIT 42.5 % (35.0-51.0); LYMPH # 1.1 K/uL (1.0-4.3); LYMPH % 7.9 % (20.0-40.0); MEAN CELL VOLUME 92.4 fL (80.0-94.0); MEAN CORPUSCULAR HEMOGLOBIN 30.5 pg (27.0-31.0); MEAN PLATELET VOLUME 7.5 fL (7.2-11.7); MONO # 1.2 K/uL (0.0-0.8); MONO % 8.5 % (0.0-10.0); PLATELET COUNT 278 K/uL (130-400); RED CELL DISTRIBUTION WIDTH 12.9 % (11.5-14.5); WHITE BLOOD COUNT 13.5 K/uL (4.8-10.8)
[2016-12-10 14:15] LABS: CHLORIDE 97 mmol/L (98-107); SODIUM 133 mmol/L (132-148)
[2016-12-10 14:16] LABS: POTASSIUM 4.3 mmol/L (3.6-5.2)
[2016-12-10 14:18] LABS: ALB/GLOB RATIO 1.1 (1.0-2.1); ALKALINE PHOSPHATASE 54 U/L (38-126); ALT/SGPT 67 U/L (21-72); AST/SGOT 28 U/L (17-59); BILIRUBIN,TOTAL 0.5 mg/dL (0.2-1.3); BLOOD UREA NITROGEN 20 mg/dL (9-20); CALCIUM 8.8 mg/dl (8.6-10.4); CARBON DIOXIDE 26 mmol/L (22-30); GFR AFRICAN-AMERICAN > 60; GLUCOSE,RANDOM 162 mg/dL (75-110); TOTAL PROTEIN 6.8 g/dL (6.3-8.3)
[2016-12-10 14:39] LABS: NEUTROPHIL 78 % (50-75); TOTAL CELLS COUNTED 100
[2016-12-11] MEDS: (Novolog) Insulin Aspart, Recombinant 100 u/ml 10 ml vial SC SCH ×4 (08:12→21:55)
[2016-12-11] MEDS: POLYETHYLENE GLYCOL 3350 17 GM/Dose PACKET PO SCH (10:43)
[2016-12-11] MEDS: Multiple Vitamins Tab PO SCH (10:44)
[2016-12-11] MEDS: Pantoprazole 40 mg EC Tab PO SCH (10:44)
[2016-12-11] MEDS: Magnesium Hydroxide Susp 30 ml UD PO SCH (10:44)
[2016-12-11] MEDS: Tolterodine 2 mg ER Cap PO SCH (10:44)
--- NOTE | 2016-12-11 16:59 | CP.PCM.PN ---
Subjective - Date & Time of Evaluation Date of Evaluation: 12/11/16 Time of Evaluation: 10:40 - Subjective Subjective: clinically same Objective - Vital Signs/Intake and Output Vital Signs (last 24 hours): Temp Pulse Resp BP Pulse Ox 98.2 F 88 20 119/78 96 12/11/16 15:00 12/11/16 15:00 12/11/16 15:00 12/11/16 15:00 12/11/16 15:00 Intake and Output: 12/11/16 12/11/16 06:59 18:59 Output Total 1800 Balance -1800 - Medications Medications: Current Medications Acetaminophen (Tylenol 325mg Tab) 650 mg PO Q4 PRN PRN Reason: PAIN MILD Last Admin: 12/10/16 00:10 Dose: 650 mg Amlodipine Besylate (Norvasc) 10 mg PO DAILY [facility] Last Admin: 12/10/16 10:17 Dose: 10 mg Benztropine Mesylate (Cogentin) 2 mg PO DAILY [facility] Last Admin: 12/11/16 10:44 Dose: 2 mg Dexamethasone (Decadron) 4 mg PO Q6 [facility] Last Admin: 12/11/16 11:44 Dose: 4 mg Enoxaparin Sodium (Lovenox) 40 mg SC DAILY [facility] Last Admin: 12/07/16 10:11 Dose: 40 mg Ergocalciferol (Drisdol 50,000 Intl Units Cap) 1 cap PO QWK [facility] Last Admin: 12/09/16 10:01 Dose: 1 cap Famotidine (Pepcid) 20 mg PO BID [facility] Last Admin: 12/11/16 10:44 Dose: 20 mg Fluoxetine HCl (Prozac) 20 mg PO DAILY [facility] Last Admin: 12/11/16 10:44 Dose: 20 mg Insulin Aspart (Novolog) 0 unit SC ACHS [facility] PRN Reason: Protocol Last Admin: 12/11/16 12:50 Dose: 6 unit Lactulose (Enulose) 20 gm PO HS [facility] Last Admin: 12/10/16 21:19 Dose: 20 gm Magnesium Hydroxide (Milk Of Magnesia) 30 ml PO DAILY [facility] Last Admin: 12/11/16 10:44 Dose: 30 ml Metformin HCl (Glucophage) 500 mg PO BIDCC [facility] Last Admin: 12/11/16 09:12 Dose: 500 mg Multivitamins (Hexavitamin) 1 tab PO DAILY [facility] Last Admin: 12/11/16 10:44 Dose: 1 tab Olanzapine (Zyprexa) 5 mg PO DAILY [facility] Last Admin: 12/11/16 10:44 Dose: 5 mg Pantoprazole Sodium (Protonix Ec Tab) 40 mg PO DAILY [facility] Last Admin: 12/11/16 10:44 Dose: 40 mg Polyethylene Glycol (Miralax) 17 gm PO DAILY [facility] Last Admin: 12/11/16 10:43 Dose: 17 gm Thiamine HCl (Vitamin B1 Tab) 100 mg PO DAILY [facility] Last Admin: 12/11/16 10:44 Dose: 100 mg Tolterodine Tartrate (Detrol La) 2 mg PO DAILY [facility] Last Admin: 12/11/16 10:44 Dose: 2 mg - Labs Labs: 12/10/16 13:54 12/10/16 13:54 PT 12.0 SECONDS (9.7-12.2) 12/04/16 14:25 INR 1.1 12/04/16 14:25 APTT 34 SECONDS (21-34) 12/04/16 14:25 - Constitutional Appears: Well - Head Exam Head Exam: ATRAUMATIC, NORMAL INSPECTION, NORMOCEPHALIC - Eye Exam Eye Exam: EOMI, Normal appearance, PERRL Pupil Exam: NORMAL ACCOMODATION, PERRL - ENT Exam ENT Exam: Mucous Membranes Moist, Normal Exam - Neck Exam Neck Exam: Full ROM, Normal Inspection. absent: Lymphadenopathy - Respiratory Exam Respiratory Exam: Decreased Breath Sounds - Cardiovascular Exam Cardiovascular Exam: REGULAR RHYTHM, +S1, +S2 - GI/Abdominal Exam GI & Abdominal Exam: Soft, Diminished Bowel Sounds - Rectal Exam Rectal Exam: Deferred Assessment and Plan (1) Weakness Status: Acute (2) Elevated CK Status: Acute (3) Finger laceration Status: Acute (4) Open finger dislocation Status: Acute (5) Recurrent falls Status: Acute (6) Unsteady gait Status: Acute
[2016-12-12] MEDS: (Novolog) Insulin Aspart, Recombinant 100 u/ml 10 ml vial SC SCH ×3 (08:34→17:22)
[2016-12-12] MEDS: Magnesium Hydroxide Susp 30 ml UD PO SCH (09:37)
[2016-12-12] MEDS: Pantoprazole 40 mg EC Tab PO SCH (09:37)
[2016-12-12] MEDS: Tolterodine 2 mg ER Cap PO SCH (09:38)
[2016-12-12] MEDS: POLYETHYLENE GLYCOL 3350 17 GM/Dose PACKET PO SCH (09:38)
[2016-12-12] MEDS: Multiple Vitamins Tab PO SCH (12:18)
[2016-12-12 12:20] LABS: BASO % 0.1 % (0.0-2.0); HEMATOCRIT 38.9 % (35.0-51.0); LYMPH # 0.7 K/uL (1.0-4.3); LYMPH % 6.1 % (20.0-40.0); MEAN CELL VOLUME 92.2 fL (80.0-94.0); MEAN CORPUSCULAR HEMOGLOBIN 30.9 pg (27.0-31.0); MEAN CORPUSCULAR HGB CONC 33.5 g/dL (33.0-37.0); MEAN PLATELET VOLUME 7.5 fL (7.2-11.7); MONO # 0.7 K/uL (0.0-0.8); MONO % 5.3 % (0.0-10.0); PLATELET COUNT 267 K/uL (130-400); RED CELL DISTRIBUTION WIDTH 13.2 % (11.5-14.5); WHITE BLOOD COUNT 12.3 K/uL (4.8-10.8)
[2016-12-12 12:39] LABS: NEUTROPHIL 88 % (50-75); TOTAL CELLS COUNTED 100
[2016-12-12 12:47] LABS: CHLORIDE 93 mmol/L (98-107); POTASSIUM 4.1 mmol/L (3.6-5.2); SODIUM 131 mmol/L (132-148)
[2016-12-12 12:49] LABS: AST/SGOT 31 U/L (17-59); BILIRUBIN,TOTAL 0.5 mg/dL (0.2-1.3); GFR AFRICAN-AMERICAN > 60
[2016-12-12 12:50] LABS: ALB/GLOB RATIO 1.1 (1.0-2.1); ALKALINE PHOSPHATASE 48 U/L (38-126); ALT/SGPT 66 U/L (21-72); BLOOD UREA NITROGEN 23 mg/dL (9-20); CALCIUM 8.6 mg/dl (8.6-10.4); CARBON DIOXIDE 29 mmol/L (22-30); GLUCOSE,RANDOM 232 mg/dL (75-110); TOTAL PROTEIN 6.1 g/dL (6.3-8.3)
--- NOTE | 2016-12-12 16:15 | CP.PCM.PN ---
Subjective - Date & Time of Evaluation Date of Evaluation: 12/12/16 Time of Evaluation: 10:40 - Subjective Subjective: clinically same Objective - Vital Signs/Intake and Output Vital Signs (last 24 hours): Temp Pulse Resp BP Pulse Ox 98.1 F 72 18 152/98 H 98 12/12/16 08:00 12/12/16 08:00 12/12/16 08:00 12/12/16 08:00 12/12/16 08:00 Intake and Output: 12/12/16 12/12/16 06:59 18:59 Output Total 1300 1100 Balance -1300 -1100 - Medications Medications: Current Medications Acetaminophen (Tylenol 325mg Tab) 650 mg PO Q4 PRN PRN Reason: PAIN MILD Last Admin: 12/10/16 00:10 Dose: 650 mg Amlodipine Besylate (Norvasc) 10 mg PO DAILY [facility] Last Admin: 12/12/16 09:37 Dose: 10 mg Benztropine Mesylate (Cogentin) 2 mg PO DAILY [facility] Last Admin: 12/12/16 09:38 Dose: 2 mg Dexamethasone (Decadron) 4 mg PO Q6 [facility] Last Admin: 12/12/16 11:49 Dose: 4 mg Enoxaparin Sodium (Lovenox) 40 mg SC DAILY [facility] Last Admin: 12/07/16 10:11 Dose: 40 mg Ergocalciferol (Drisdol 50,000 Intl Units Cap) 1 cap PO QWK [facility] Last Admin: 12/09/16 10:01 Dose: 1 cap Famotidine (Pepcid) 20 mg PO BID [facility] Last Admin: 12/12/16 09:37 Dose: 20 mg Fluoxetine HCl (Prozac) 20 mg PO DAILY [facility] Last Admin: 12/12/16 09:38 Dose: 20 mg Insulin Aspart (Novolog) 0 unit SC ACHS [facility] PRN Reason: Protocol Last Admin: 12/12/16 12:34 Dose: 1 unit Lactulose (Enulose) 20 gm PO HS [facility] Last Admin: 12/11/16 21:05 Dose: 20 gm Magnesium Hydroxide (Milk Of Magnesia) 30 ml PO DAILY [facility] Last Admin: 12/12/16 09:37 Dose: 30 ml Metformin HCl (Glucophage) 500 mg PO BIDCC [facility] Last Admin: 12/12/16 07:53 Dose: 500 mg Multivitamins (Hexavitamin) 1 tab PO DAILY [facility] Last Admin: 12/12/16 12:18 Dose: 1 tab Olanzapine (Zyprexa) 5 mg PO DAILY [facility] Last Admin: 12/12/16 09:38 Dose: 5 mg Pantoprazole Sodium (Protonix Ec Tab) 40 mg PO DAILY [facility] Last Admin: 12/12/16 09:37 Dose: 40 mg Polyethylene Glycol (Miralax) 17 gm PO DAILY [facility] Last Admin: 12/12/16 09:38 Dose: 17 gm Thiamine HCl (Vitamin B1 Tab) 100 mg PO DAILY [facility] Last Admin: 12/12/16 09:37 Dose: 100 mg Tolterodine Tartrate (Detrol La) 2 mg PO DAILY [facility] Last Admin: 12/12/16 09:38 Dose: 2 mg - Labs Labs: 12/12/16 12:15 12/12/16 12:15 PT 12.0 SECONDS (9.7-12.2) 12/04/16 14:25 INR 1.1 12/04/16 14:25 APTT 34 SECONDS (21-34) 12/04/16 14:25 - Constitutional Appears: Well - Head Exam Head Exam: ATRAUMATIC, NORMAL INSPECTION, NORMOCEPHALIC - Eye Exam Eye Exam: EOMI, Normal appearance, PERRL Pupil Exam: NORMAL ACCOMODATION, PERRL - ENT Exam ENT Exam: Mucous Membranes Moist, Normal Exam - Neck Exam Neck Exam: Full ROM, Normal Inspection. absent: Lymphadenopathy - Respiratory Exam Respiratory Exam: Decreased Breath Sounds - Cardiovascular Exam Cardiovascular Exam: REGULAR RHYTHM, +S1, +S2 - GI/Abdominal Exam GI & Abdominal Exam: Soft, Diminished Bowel Sounds - Rectal Exam Rectal Exam: Deferred Assessment and Plan (1) Weakness Status: Acute (2) Elevated CK Status: Acute (3) Finger laceration Status: Acute (4) Open finger dislocation Status: Acute (5) Recurrent falls Status: Acute (6) Unsteady gait Status: Acute
[2016-12-13] MEDS: (Novolog) Insulin Aspart, Recombinant 100 u/ml 10 ml vial SC SCH ×2 (09:07→12:56)
[2016-12-13] MEDS: Pantoprazole 40 mg EC Tab PO SCH (09:08)
[2016-12-13] MEDS: Multiple Vitamins Tab PO SCH (09:08)
[2016-12-13] MEDS: Magnesium Hydroxide Susp 30 ml UD PO SCH (09:08)
[2016-12-13] MEDS: Tolterodine 2 mg ER Cap PO SCH (09:09)
[2016-12-13] MEDS: POLYETHYLENE GLYCOL 3350 17 GM/Dose PACKET PO SCH (09:09)
[2016-12-13 11:14] LABS: BASO % 0.1 % (0.0-2.0); HEMATOCRIT 41.3 % (35.0-51.0); LYMPH # 0.7 K/uL (1.0-4.3); LYMPH % 5.3 % (20.0-40.0); MEAN CELL VOLUME 92.3 fL (80.0-94.0); MEAN CORPUSCULAR HEMOGLOBIN 30.5 pg (27.0-31.0); MEAN PLATELET VOLUME 7.4 fL (7.2-11.7); MONO # 0.5 K/uL (0.0-0.8); MONO % 4.3 % (0.0-10.0); PLATELET COUNT 285 K/uL (130-400); RED CELL DISTRIBUTION WIDTH 13.1 % (11.5-14.5); WHITE BLOOD COUNT 12.5 K/uL (4.8-10.8)
[2016-12-13 11:22] LABS: CHLORIDE 94 mmol/L (98-107)
[2016-12-13 11:23] LABS: POTASSIUM 4.3 mmol/L (3.6-5.2); SODIUM 130 mmol/L (132-148)
[2016-12-13 11:25] LABS: CARBON DIOXIDE 24 mmol/L (22-30); GFR AFRICAN-AMERICAN > 60
[2016-12-13 11:26] LABS: ALB/GLOB RATIO 1.1 (1.0-2.1); ALKALINE PHOSPHATASE 49 U/L (38-126); ALT/SGPT 70 U/L (21-72); AST/SGOT 28 U/L (17-59); BILIRUBIN,TOTAL 0.4 mg/dL (0.2-1.3); BLOOD UREA NITROGEN 20 mg/dL (9-20); CALCIUM 8.4 mg/dl (8.6-10.4); GLUCOSE,RANDOM 236 mg/dL (75-110)
[2016-12-13 11:59] LABS: NEUTROPHIL 95 % (50-75); TOTAL CELLS COUNTED 100
[2016-12-13 16:28] VITALS: BP 135/82; PULSE 87; RESP 20; TEMP 97.9; O2SAT 96
--- NOTE | 2016-12-13 17:23 | CP.PCM.PN ---
Subjective - Date & Time of Evaluation Date of Evaluation: 12/13/16 Time of Evaluation: 11:40 - Subjective Subjective: clinically same Objective - Vital Signs/Intake and Output Vital Signs (last 24 hours): Temp Pulse Resp BP Pulse Ox 97.9 F 87 20 135/82 96 12/13/16 15:00 12/13/16 15:00 12/13/16 15:00 12/13/16 15:00 12/13/16 15:00 Intake and Output: 12/13/16 12/13/16 06:59 18:59 Intake Total 750 Output Total 2400 1050 Balance -1650 -1050 - Medications Medications: Current Medications Acetaminophen (Tylenol 325mg Tab) 650 mg PO Q4 PRN PRN Reason: PAIN MILD Last Admin: 12/10/16 00:10 Dose: 650 mg Amlodipine Besylate (Norvasc) 10 mg PO DAILY [facility] Last Admin: 12/13/16 09:08 Dose: 10 mg Benztropine Mesylate (Cogentin) 2 mg PO DAILY [facility] Last Admin: 12/13/16 09:09 Dose: 2 mg Dexamethasone (Decadron) 4 mg PO Q6 [facility] Last Admin: 12/13/16 12:04 Dose: 4 mg Enoxaparin Sodium (Lovenox) 40 mg SC DAILY [facility] Last Admin: 12/07/16 10:11 Dose: 40 mg Ergocalciferol (Drisdol 50,000 Intl Units Cap) 1 cap PO QWK [facility] Last Admin: 12/09/16 10:01 Dose: 1 cap Famotidine (Pepcid) 20 mg PO BID [facility] Last Admin: 12/13/16 09:08 Dose: 20 mg Fluoxetine HCl (Prozac) 20 mg PO DAILY [facility] Last Admin: 12/13/16 09:09 Dose: 20 mg Insulin Aspart (Novolog) 0 unit SC ACHS [facility] PRN Reason: Protocol Last Admin: 12/13/16 12:56 Dose: 1 unit Lactulose (Enulose) 20 gm PO HS [facility] Last Admin: 12/12/16 22:03 Dose: Not Given Magnesium Hydroxide (Milk Of Magnesia) 30 ml PO DAILY [facility] Last Admin: 12/13/16 09:08 Dose: 30 ml Metformin HCl (Glucophage) 500 mg PO BIDCC [facility] Last Admin: 12/13/16 07:40 Dose: 500 mg Multivitamins (Hexavitamin) 1 tab PO DAILY [facility] Last Admin: 12/13/16 09:08 Dose: 1 tab Olanzapine (Zyprexa) 5 mg PO DAILY [facility] Last Admin: 12/13/16 09:09 Dose: 5 mg Pantoprazole Sodium (Protonix Ec Tab) 40 mg PO DAILY [facility] Last Admin: 12/13/16 09:08 Dose: 40 mg Polyethylene Glycol (Miralax) 17 gm PO DAILY [facility] Last Admin: 12/13/16 09:09 Dose: 17 gm Thiamine HCl (Vitamin B1 Tab) 100 mg PO DAILY [facility] Last Admin: 12/13/16 09:08 Dose: 100 mg Tolterodine Tartrate (Detrol La) 2 mg PO DAILY [facility] Last Admin: 12/13/16 09:09 Dose: 2 mg - Labs Labs: 12/13/16 11:05 12/13/16 11:05 PT 12.0 SECONDS (9.7-12.2) 12/04/16 14:25 INR 1.1 12/04/16 14:25 APTT 34 SECONDS (21-34) 12/04/16 14:25 - Constitutional Appears: Well - Head Exam Head Exam: ATRAUMATIC, NORMAL INSPECTION, NORMOCEPHALIC - Eye Exam Eye Exam: EOMI, Normal appearance, PERRL Pupil Exam: NORMAL ACCOMODATION, PERRL - ENT Exam ENT Exam: Mucous Membranes Moist, Normal Exam - Neck Exam Neck Exam: Full ROM, Normal Inspection. absent: Lymphadenopathy - Respiratory Exam Respiratory Exam: Decreased Breath Sounds - Cardiovascular Exam Cardiovascular Exam: REGULAR RHYTHM, +S1, +S2 - GI/Abdominal Exam GI & Abdominal Exam: Soft, Diminished Bowel Sounds - Rectal Exam Rectal Exam: Deferred Assessment and Plan (1) Weakness Status: Acute (2) Elevated CK Status: Acute (3) Finger laceration Status: Acute (4) Open finger dislocation Status: Acute (5) Recurrent falls Status: Acute (6) Unsteady gait Status: Acute
--- NOTE | 2016-12-13 17:43 | CP.PCM.PN ---
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 j carlos herman , Pt cleared for discharge to [facility] As per CM pt accepted at [facility] Objective - Vital Signs/Intake and Output Vital Signs (last 24 hours): Temp Pulse Resp BP Pulse Ox 97.9 F 87 20 135/82 96 12/13/16 15:00 12/13/16 15:00 12/13/16 15:00 12/13/16 15:00 12/13/16 15:00 Intake and Output: 12/13/16 12/13/16 06:59 18:59 Intake Total 750 Output Total 2400 1050 Balance -1650 -1050 - Medications Medications: Current Medications Acetaminophen (Tylenol 325mg Tab) 650 mg PO Q4 PRN PRN Reason: PAIN MILD Last Admin: 12/10/16 00:10 Dose: 650 mg Amlodipine Besylate (Norvasc) 10 mg PO DAILY [facility] Last Admin: 12/13/16 09:08 Dose: 10 mg Benztropine Mesylate (Cogentin) 2 mg PO DAILY [facility] Last Admin: 12/13/16 09:09 Dose: 2 mg Dexamethasone (Decadron) 4 mg PO Q6 [facility] Last Admin: 12/13/16 12:04 Dose: 4 mg Enoxaparin Sodium (Lovenox) 40 mg SC DAILY [facility] Last Admin: 12/07/16 10:11 Dose: 40 mg Ergocalciferol (Drisdol 50,000 Intl Units Cap) 1 cap PO QWK [facility] Last Admin: 12/09/16 10:01 Dose: 1 cap Famotidine (Pepcid) 20 mg PO BID [facility] Last Admin: 12/13/16 09:08 Dose: 20 mg Fluoxetine HCl (Prozac) 20 mg PO DAILY [facility] Last Admin: 12/13/16 09:09 Dose: 20 mg Insulin Aspart (Novolog) 0 unit SC ACHS [facility] PRN Reason: Protocol Last Admin: 12/13/16 12:56 Dose: 1 unit Lactulose (Enulose) 20 gm PO HS [facility] Last Admin: 12/12/16 22:03 Dose: Not Given Magnesium Hydroxide (Milk Of Magnesia) 30 ml PO DAILY [facility] Last Admin: 12/13/16 09:08 Dose: 30 ml Metformin HCl (Glucophage) 500 mg PO BIDCC [facility] Last Admin: 12/13/16 07:40 Dose: 500 mg Multivitamins (Hexavitamin) 1 tab PO DAILY [facility] Last Admin: 12/13/16 09:08 Dose: 1 tab Olanzapine (Zyprexa) 5 mg PO DAILY [facility] Last Admin: 12/13/16 09:09 Dose: 5 mg Pantoprazole Sodium (Protonix Ec Tab) 40 mg PO DAILY [facility] Last Admin: 12/13/16 09:08 Dose: 40 mg Polyethylene Glycol (Miralax) 17 gm PO DAILY [facility] Last Admin: 12/13/16 09:09 Dose: 17 gm Thiamine HCl (Vitamin B1 Tab) 100 mg PO DAILY [facility] Last Admin: 12/13/16 09:08 Dose: 100 mg Tolterodine Tartrate (Detrol La) 2 mg PO DAILY [facility] Last Admin: 12/13/16 09:09 Dose: 2 mg - Labs Labs: 12/13/16 11:05 12/13/16 11:05 PT 12.0 SECONDS (9.7-12.2) 12/04/16 14:25 INR 1.1 12/04/16 14:25 APTT 34 SECONDS (21-34) 12/04/16 14:25
== END 2016-12-13 19:00 | disposition home or self-care (01) | DRG 558 ==
LOC: C.ER 21:05 → C.9E 23:14 → C.5T 12-01 00:19 → OBSVTOIN 12-02 15:48 → C.3T 12-03 01:45 → C.6T 12-08 14:11
PROVIDERS: ADMIT Internal Medicine Nephrology; ATTEND Internal Medicine Nephrology
PROC: 0RG1070 Fusion of Cervical Vertebral Joint with Autologous Tissue Substitute, Anterior Approach, Anterior Column, Open Approach (ICD-10-PCS; principal; 2016-12-08 09:11)
PROC: 0RB30ZZ Excision of Cervical Vertebral Disc, Open Approach (ICD-10-PCS; 2016-12-08 09:11)
DX: M50.01 Cervical disc disorder with myelopathy, high cervical region (principal); G82.50 Quadriplegia, unspecified; F20.9 Schizophrenia, unspecified; G62.9 Polyneuropathy, unspecified; N39.0 Urinary tract infection, site not specified; E10.9 Type 1 diabetes mellitus without complications; E78.5 Hyperlipidemia, unspecified; E66.9 Obesity, unspecified; F31.9 Bipolar disorder, unspecified; G24.01 Drug induced subacute dyskinesia; H33.22 Serous retinal detachment, left eye; H54.0 Blindness, both eyes; I10 Essential (primary) hypertension; K21.9 Gastro-esophageal reflux disease without esophagitis; K59.09 Other constipation; R29.6 Repeated falls; S61.219A Laceration without foreign body of unspecified finger without damage to nail, initial encounter; Z79.4 Long term (current) use of insulin